=== PATIENT | male | born 1970 | race Caucasian/White ===

== ENCOUNTER 2020-02-25 12:15 | Outpatient (REF) | payer OTHER, BC, SELFPAY ==
--- NOTE | 2020-02-25 12:28 | XR_ITS ---
EXAMINATION: XR HAND, LEFT CLINICAL INFORMATION: Injury COMPARISON: None TECHNIQUE: PA, lateral, and oblique views of the left hand. FINDINGS: Nondisplaced fracture of the tuft of the 2nd distal phalanx with overlying soft tissue defect/abnormality at the volar aspect. No radiopaque foreign body. Evaluation of the 4th finger is limited as it is held in flexion at the PIP joint. IMPRESSION: Nondisplaced fracture of the tuft of the 2nd distal phalanx.
== END 2020-02-25 12:16 | disposition home or self-care (01) ==
LOC: HO.HMGCX 12:15
PROVIDERS: Visit Provider Nurse Practitioner Family
DX: S69.90XA Unspecified injury of unspecified wrist, hand and finger(s), initial encounter (principal); X58.XXXA Exposure to other specified factors, initial encounter; Y93.9 Activity, unspecified; Y92.9 Unspecified place or not applicable; Y99.9 Unspecified external cause status
CPT/HCPCS: 73130

== ENCOUNTER 2020-02-25 13:19 | Emergency (ER) | payer OTHER, BC, SELFPAY ==
[2020-02-25 13:57] VITALS: BP 169/108; PULSE 92; RESP 18; TEMP 36.4; O2SAT 99; BMI 25.1
--- NOTE | 2020-02-25 14:25 | ED_ITS ---
HPI - Extremity Problem General Chief complaint: Extremity Injury, Upper Stated complaint: finger inj work related Time Seen by Provider: 02/25/20 14:15 Source: patient Mode of arrival: ambulatory Limitations: no limitations History of Present Illness HPI Narrative: patient tells me he was working and he suffered a laceration to his left index finger. Told he was seen at urgent care and sent to the ED for further evaluation. Tetanus up-to-date. Complaint: extremity pain Onset (ago): hour(s) Pain Consistency: constant Location: left Quality: constant Radiation: none Relieving factors: nothing Associated symptoms: denies other symptoms Related Data Previous Rx's Medication Instructions Recorded cephalexin 500 mg PO Q8H #21 cap 02/25/20 Allergies Allergy/AdvReac Type Severity Reaction Status Date / Time No Known Allergies Allergy Verified 02/25/20 13:25 [No Known Allergies*] Review of Systems Review of Systems: Yes all other systems are reviewed and are negative Constitutional: Constitutional: Reports no additional constitutional complaints, Denies body ache(s), Denies chills, Denies fever(s), Denies headache(s) and Denies weakness Eyes: Eyes: Reports no additional eye complaints and Denies change in vision ENT: Reports system reviewed and no additional complaints, except as documented, Denies dizziness, Denies headache(s), Denies nasal congestion, Denie s nasal discharge and Denies neck pain Cardiovascular: Cardiovascular: Reports no additional cardiovascular complaints, Denies chest pain, Denies leg edema and Denies dyspnea Respiratory: Respiratory: Reports no additional respiratory complaints, Denies cough and Denies dyspnea Gastrointestinal: Gastrointestinal: Reports no additional gastrointestinal complaints, Denies abdominal pain, Denies diarrhea, Denies nausea and Denies vomiting Genitourinary: Genitourinary: Denies urinary incontinence Musculoskeletal: Musculoskeletal: Reports no additional musculoskeletal complaints, Denies back pain, Reports arthralgias, Denies joint swelling, Reports limited range of motion, Denies neck pain, Denies numbness and Denies tingling Comments: Skin lac Integumentary/Breasts: Skin/Breast: Reports system reviewed and no additional complaints, except as docu and Denies rash Neurologic: Reports system reviewed and no additional complaints, except as documented, Denies Abnormal speech present, Denies dizziness, Denies headache(s), Denies numbness, Denies tingling and Denies weakness PMFSH Past Medical History Attestation statement: The following information was validated with the patient. Source: obtained from family and nursing notes reviewed Medical History Chronic back pain Hypertension Scoliosis Surgical History S/P tendon repair Social History Social History Smoking Status: Current every day smoker Smoked in Last 30 Days: Yes Use of substances other than those prescribed or required for medical reasons: No Substance Use Type: Marijuana Advance Directives: No Advance Directives Information Provided: Yes Physical Exam Vital Signs and I&O and Narrative: Vital Signs and I&O: Vital Signs Temp 97.6 F 02/25/20 13:57 Pulse 92 02/25/20 13:57 Resp 18 02/25/20 13:57 BP 169/108 H 02/25/20 13:57 Pulse Ox 99 02/25/20 13:57 Intake & Output 02/24/20 02/25/20 02/25/20 18:59 06:59 18:59 Weight 79.379 kg Body Mass Index 25.1 Const: General: cooperative, healthy appearing, comfortable and no acute distress Orientation/consciousness: patient oriented x3 Limitations: no limitations HENMT: Head: Yes normal to inspection Ears: hearing grossly normal bilaterally General nose exam: Normal external nose present Face and sinus: Yes normal facial exam Mouth: Normal oral and palatal mucosa present Throat: Yes posterior oropharynx normal Eyes: General: appearance normal, both eyes and all related structures Pupils: Equal, round and reactive pupils present Neck: Neck: Yes normal visual inspection Chest: Chest palpation & inspection: normal inspection of the chest Resp: Effort & Inspection: normal respiratory effort Auscultation: clear to auscultation bilaterally Cardio: Rate: regular rate Rhythm: regular rhythm Peripheral pulses: Peripheral pulses 2+ throughout GI: Inspection: Yes normal to inspection Palpation (GI): Soft to palpation and nontender Auscultation: normal bowel sounds Back/Spine/Pelvis: Thoracic/Lumbar Spine: thoracic and lumbar spine normal to inspection Skin: General skin exam: no rashes or lesions noted Neuro: General: patient oriented x3, no focal motor deficits and normal sensation to monofilament Cranial nerves: Yes Equal, round and reactive pupils present Cognition (Neuro): normal cognition Speech: No Abnormal speech present Gait exam (Neuro): Normal gait present Motor exam (neuro): 5/5 motor strength present throughout Extrem: Other: to the left index finger there is a laceration to the volar aspect of the middle to distal digit. It is in the shape of a crescent the patient has pain with flexion and extension of the finger but is able. Neurovascularly intact distally. Normal cap refill. Nailbed not involved. Laceration approximately 4 cm General: Yes normal to inspection Left upper extremity: normal capillary refill; no edema and joint enlargement noted Procedures Laceration Laceration 1: Site: hand ( left index) Side (If applicable): left Size (cm): 4 Description: other (curved) Depth: simple, single layer Local Anesthetic: lidocaine 2% Amount of anesthesia used (mL): 2 Pre-repair: wound explored and irrigated extensively Skin layer closed with: nylon Size (cm): 5-0 Number of sutures: 9 Technique: simple, interrupted MDM - Extremity (Nontraumatic) MDM Narrative Medical decision making narrative: sent from urgent care with laceration. X- rays reviewed from earlier today which show a nondisplaced fracture of the tuft of the 2nd distal phalanx. Patient does have a laceration of the volar aspect and this was repaired. See procedure note. The patient was able to flex and extend the finger with no difficulty. He was placed in a finger splint for his fracture and place on oral antibiotics with follow-up with Orthopedics. Reviewed worrisome signs and symptoms when to return to the emergency department. Comfortable discharge home. Imaging Data hand x-ray: Attestation: I personally reviewed and interpreted this imaging study as follows: Radiologist's impression: EXAMINATION: XR HAND, LEFT CLINICAL INFORMATION: Injury COMPARISON: None TECHNIQUE: PA, lateral, and oblique views of the left hand. FINDINGS: Nondisplaced fracture of the tuft of the 2nd distal phalanx with overlying soft tissue defect/abnormality at the volar aspect. No radiopaque foreign body. Evaluation of the 4th finger is limited as it is held in flexion at the PIP joint. IMPRESSION: Nondisplaced fracture of the tuft of the 2nd distal phalanx. Discharge Plan Discharge Clinical Impression: Laceration Fracture of finger Qualifiers: Encounter type: initial encounter Finger: index finger Fracture type: open Phalanx: distal Fracture alignment: nondisplaced Laterality: left Qualified Code(s): S62.661B - Nondisplaced fracture of distal phalanx of left index finger, initial encounter for open fracture Patient Disposition: Home, Self-Care Instructions: Laceration (ED), Finger Fracture (ED) Additional Instructions: Sutures out in 7-10 days Follow-up with orthopedics Wash with soap and water daily as discussed Prescriptions: New cephalexin 500 mg capsule 500 mg PO Q8H Qty: 21 RF: 0 Referrals: Michael Wilcox MD [Physician] - 5 days Stand Alone Forms: Work/School Release Interventions: ED Discharge Assessment Last Done: 02/25/20 15:14 Discharge Date/Time: 02/25/20 15:16
== END 2020-02-25 15:16 | disposition home or self-care (01) ==
PROVIDERS: Emergency Provider Emergency Medicine
DX: S62.661B Nondisplaced fracture of distal phalanx of left index finger, initial encounter for open fracture (principal); W45.8XXA Other foreign body or object entering through skin, initial encounter; I10 Essential (primary) hypertension; F17.200 Nicotine dependence, unspecified, uncomplicated; Y93.9 Activity, unspecified; Y92.9 Unspecified place or not applicable; Y99.0 Civilian activity done for income or pay
CPT/HCPCS: 12002; 99284

== ENCOUNTER 2020-03-05 09:15 | Emergency (ER) | payer OTHER, SELFPAY ==
--- NOTE | 2020-03-05 09:40 | ED_ITS ---
HPI - General Adult General Chief complaint: General Medical Stated complaint: SUTURE REMOVAL Time Seen by Provider: 03/05/20 09:39 Source: patient Mode of arrival: ambulatory Limitations: no limitations History of Present Illness HPI narrative: Patient presenting to the ED for suture removal. Denies any fevers, redness, drainage, streaking or worsening pain. Was treated in the ED on 02/25/2020 given Keflex reports he is taking as prescribed. Related Data Previous Rx's Medication Instructions Recorded cephalexin 500 mg PO Q8H #21 cap 02/25/20 Allergies Allergy/AdvReac Type Severity Reaction Status Date / Time No Known Allergies Allergy Verified 02/25/20 13:25 [No Known Allergies*] Review of Systems Review of Systems: Yes all other systems are reviewed and are negative PMFSH Past Medical History Attestation statement: The following information was validated with the patient. Medical History Chronic back pain Hypertension Scoliosis Surgical History S/P tendon repair Social History Social History Alcohol intake: current Alcohol intake frequency: a few times a week Alcohol type: beer Smoking Status: Current every day smoker Use of substances other than those prescribed or required for medical reasons: No Substance Use Type: Marijuana Advance Directives: No Advance Directives Information Provided: No Physical Exam Vital Signs: Vital Signs: Vital Signs Temp Pulse Resp BP Pulse Ox 03/05/20 09:43 98.2 F 66 16 130/76 98 Body Mass Index 25.1 Const: General: cooperative, healthy appearing, comfortable, no acute distress, well developed, alert, awake and Physically active Nutritional Appearance: average body habitus and well nourished Orientation/consciousness: patient oriented x3 Limitations: no limitations HENMT: Head: Yes normal to inspection, Yes No palpable skull fracture present, Yes normocephalic and Yes atraumatic Ears: hearing grossly normal bilaterally General nose exam: Normal external nose present Face and sinus: Yes normal facial exam Mouth: moist mucous membranes Eyes: General: appearance normal, both eyes and all related structures Visual Munoz: normal visual munoz by confrontation Alignment and Position: alignment normal Periorbital: periorbital findings normal Eyelids: Yes eyelids normal Conjunctivae: conjunctivae normal Sclerae: sclerae normal Pupils: Equal, round and reactive pupils present EOM: EOMs intact bilaterally Neck: Neck: Yes normal visual inspection, Yes full ROM, Yes no lymphadenopathy, Yes no meningeal signs, Yes trachea midline and Yes supple Chest: Chest palpation & inspection: normal inspection of the chest Resp: Effort & Inspection: normal respiratory effort and able to speak in complete sentences Auscultation: clear to auscultation bilaterally, no crackles, no rales, no rhonchi and no wheezes Cardio: Rate: regular rate Rhythm: regular rhythm Heart sounds: S1 normal heart sound present and S2 normal heart sound present Peripheral pulses: Peripheral pulses 2+ throughout GI: Inspection: Yes normal to inspection Palpation (GI): Soft to palpation, nontender and No hepatosplenomegaly present Percussion: Yes normal to percussion Auscultation: normal bowel sounds : General: Yes no CVA tenderness Back/Spine/Pelvis: Back: no CVA tenderness Cervical Spine: normal cervical lordosis and cervical ROM normal Thoracic/Lumbar Spine: thoracic and lumbar spine normal to inspection and thoraco-lumbar ROM normal Skin: General skin exam: no rashes or lesions noted, elasticity normal and turgor normal Trauma: no lacerations or abrasions Wounds: no wounds Hair: normal Nails: normal Neuro: General: patient oriented x3 and no meningeal signs Cranial nerves: Yes CN's II-XII intact bilaterally and Yes Equal, round and reactive pupils present Cognition (Neuro): normal cognition Gait exam (Neuro): Normal gait present Motor exam (neuro): 5/5 motor strength present throughout Extrem: General: Yes normal to inspection, Yes full ROM, Yes capillary refill normal, Yes no clubbing, cyanosis or edema, No no pedal edema, No no calf tenderness, Yes normal gait and No edema Right upper extremity: normal to inspection, full ROM and normal capillary refill; no edema Left upper extremity: normal to inspection, full ROM, normal capillary refill and hand (to left hand [address] c well healing scab no signs of infection ); no edema Right lower extremity: normal to inspection, full ROM and normal capillary refill; no edema Left lower extremity: normal to inspection, full ROM and normal capillary refill; no edema Psych: Appearance: grossly normal and well kempt Mental Status: mental status grossly normal Speech and movement: Normal speech and movement present and Clear speech present Affect: normal affect Attitude: cooperative Thought process: Normal thought process present Thought content: Normal thought content present Insight: Good insight present (Psych) Judgement: Good judgement present (Psych) Procedures Procedure Narrative Procedure Narrative: Suture removal to left index finger 9 sutures removed. No complications. No surrounding erythema. Well-healing scab noted. Patient tolerated procedure well. It was also cleaned with normal saline. Discharge Plan Discharge Clinical Impression: Encounter for removal of sutures Patient Disposition: Home, Self-Care Instructions: Stitches Removal (ED) Prescriptions: No Action cephalexin 500 mg capsule 500 mg PO Q8H Qty: 21 RF: 0 Print Language: Tamazight
[2020-03-05 09:43] VITALS: BP 130/76; PULSE 66; RESP 16; TEMP 36.8; O2SAT 98; BMI 25.1
== END 2020-03-05 09:56 | disposition home or self-care (01) ==
PROVIDERS: Emergency Provider Emergency Medicine
DX: Z48.02 Encounter for removal of sutures (principal); Z79.899 Other long term (current) drug therapy
CPT/HCPCS: 99283

== ENCOUNTER → 2020-03-09 12:57 | Outpatient (BNVA) | payer OTHER, BC, SELFPAY | PROVIDERS: Visit Provider Physician Assistant | DX: S62.631D Displaced fracture of distal phalanx of left index finger, subsequent encounter for fracture with routine healing (principal) | CPT/HCPCS: 99203 ==

== ENCOUNTER 2021-12-29 08:42 | Emergency (ER) | payer BC, SELFPAY ==
--- NOTE | ~2021-12-29 | MR_ITS ---
MR BRAIN WITHOUT AND WITH CONTRAST CLINICAL INFORMATION: Abnormal CT. Question hemorrhage. COMPARISON: Head CT 12/29/2021. TECHNIQUE: Multiplanar, multisequence MRI of the brain was obtained before and after the intravenous administration of 8 mL Gadavist. FINDINGS: There is no pathologic intracranial enhancement. There is global cerebral volume loss, there is mild chronic microangiopathy, and there are chronic lacunar infarcts within the left cerebellar hemisphere. There is no hydrocephalus, extra-axial surface collection, or herniation. The major flow voids at the skull base are preserved. There is no acute infarct on diffusion-weighted imaging. The punctate focus of increased density within the high left parasagittal frontal lobe on the previous CT study most likely reflected a punctate calcification. No evidence of acute blood products in this location nor elsewhere intracranially. The midline structures are normal. The cerebellar tonsils are normally positioned. The cerebellum and brainstem are normal. The craniocervical junction is normal. Osseous marrow signal intensity is homogenous. The visualized soft tissues are unremarkable. Near-complete opacification of the right maxillary sinus. All mucosal thickening within the posterior right ethmoid air cells. Mastoid air cells are clear. MR/MR head/brain wo/w con IMPRESSION: - No acute intracranial findings. No acute infarcts and no enhancing lesions. - The punctate focus of increased density within the high left parasagittal frontal lobe on the previous CT study most likely reflected a punctate calcification. No evidence of acute blood products in this location nor elsewhere intracranially. - There is global cerebral volume loss, there is mild chronic microangiopathy, and there are chronic lacunar infarcts within the left cerebellar hemisphere. - Near complete opacification of the right maxillary sinus.
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
--- NOTE | ~2021-12-29 | XR_ITS ---
EXAMINATION: XR CHEST CLINICAL INFORMATION: Headache, forgetfulness COMPARISON: Chest radiograph 03/24/2015 TECHNIQUE: 2 views of the chest were obtained. FINDINGS: Lungs are clear. There is no airspace consolidation or groundglass opacity or effusion. The costophrenic sulci are well-defined. Heart size normal. Vascularity normal. The hilar and mediastinal contours are unremarkable. There is curvature and mild degenerative disc changes thoracic spine. No visible acute bony abnormality. XR/XR chest 2V IMPRESSION: Unremarkable examination.
[2021-12-29 08:48] VITALS: BP 145/98; PULSE 118; RESP 20; TEMP 36.8; O2SAT 98; BMI 25.8
--- NOTE | 2021-12-29 09:55 | ED.HA ---
HPI - Headache General Chief Complaint: Headache Stated Complaint: feels like head is going to explode Time Seen by Provider: 12/29/21 09:03 Source: patient Mode of arrival: ambulatory Limitations: no limitations History of Present Illness HPI Narrative: 51-year-old male with a past medical history of hypertension not on any medications, substance abuse, scoliosis with chronic back pain presenting to the ED with complaints of headaches and forgetfulness unable to concentrate or take care of himself or his home for the past 2 years. 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 He reports that he went to the urgent care and then they sent him here and he had an x-ray of his hand in a laceration which they repaired although he cannot recall anything else from this accident. He also reports that he cannot recall anything in the last 2 years he is unsure what has been happening in the last 2 years. He reports that his house is the disaster and he has been unable to take care of himself. Although he knows who is the president he knows his birthday was yesterday and he knows he is at [facility]. He reports that he does have a appointment with Dr. Sequeira in a few weeks. He reports otherwise he has not seen a provider in the past 2 years or longer. 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 He also reports that his memory is slowly coming back to him mainly through the pictures that he is looking at his phone and this is how he can recall the accident at this time although he could not recall the accident over the past 2 years. He reports that he has been having multiple falls although can not recall a recent fall. He denies a family history of dementia or history of dementia himself. Otherwise he denies any dizziness, change in vision, chest pain or shortness of breath, dyspnea on exertion, orthopnea, palpitations, paresthesias, nausea/vomiting/diarrhea constipation, black or bloody stools, rashes, paresthesias, lower extremity edema or calf tenderness, recent drug or alcohol usage, recent travel or sick contacts, any other head injuries, SI/HI/auditory visual sensation is thoughts of self-injury or any other complaints or concerns at this time. 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 ) Onset (ago): year(s) (2) Onset description: gradually Location: generalized Severity: mild Quality & Timing: other (Patient reports it feels like a drill is drilling through my head .) Exacerbating factors: none Relieving factors: nothing Context: other (Started he believes after he had a work related head injury 2 years ago with a pipe exploded in his face) Associated symptoms: other (Forgetfulness unable to concentrate or take care of himself) Treatments prior to arrival: none Related Data Previous Rx's Medication Instructions Recorded yatgevijfu-femkzsfuslbyz-mygshhxt 1 cap PO Q8H PRN pain #14 caps 12/29/21 50 mg-300 mg-40 mg capsule (Fioricet) Allergies Allergy/AdvReac Type Severity Reaction Status Date / Time No Known Allergies Allergy Verified 11/30/21 09:38 [No Known Allergies*] Review of Systems Review of Systems: Constitutional : No changes in activity, No lethargy, No recent prior head injury, No agitation, No increased fussiness ENT/Mouth : No Ear Pain, No Nasal discharge/drainage Eyes: No Eye Pain, No Swelling, No Redness, No Foreign Body, No Vision Changes Cardiovascular : No Chest Pain, No SOB Respiratory : No Cough Gastrointestinal : No Nausea, No Vomiting, No abdominal Pain Genitourinary : No Dysuria, No Urinary Frequency, No Urinary Incontinence, No Urgency, No Flank Pain Musculoskeletal : No joint pain, No neck stiffness, No back pain/injury Skin : No lacerations Neuro : + headaches and forgetfullness unable to concentrate or remember anything over the past 1-2 years, No unsteady gait, No Paresthesias, No Loss of Consciousness, No altered mental status, No dizziness Denies past medical history of HIV, recent trauma, coagulopathy, recent spinal/ epidural procedure, new medication, URI symptoms, close contacts with similar symptoms, tick bite, or known CO2 exposure. Yes all other systems are reviewed and are negative PMFSH Past Medical History Attestation statement: The following information was validated with the patient. Source: old records reviewed and nursing notes reviewed Medical History Chronic back pain Hypertension Scoliosis Surgical History S/P tendon repair Social History Social History Alcohol intake: current Alcohol intake frequency: former alcohol drinker Alcohol type: beer Patient Tobacco Use Status: Current everyday Tobacco user Use of substances other than those prescribed or required for medical reasons: Yes Substance Use Type: Marijuana Substance Use Frequency: Occasionally Advance Directives: No Advance Directives Information Provided: Yes Physical Exam Vital Signs: Vital Signs: Last Vital Signs Temp 98.2 F 12/29/21 08:48 Pulse 76 12/29/21 15:36 Resp 16 12/29/21 15:36 BP 129/90 H 12/29/21 15:36 Pulse Ox 98 12/29/21 15:36 O2 Del Method 12/29/21 15:36 BMI result Body Mass Index 25.8 Vital signs have been reviewed as normal and appeared to be correct. Blood pressure 145/98 Heart rate 118. Respiration rate normal. Temperature normal. Oxygen saturation normal. Appearance: Alert. Oriented X3. No acute distress. Head: Normal external exam. Normocephalic. Atraumatic. Able to rotate head bilaterally. Eyes: PERRLA. EOMI. No nystagmus noted. Conjunctiva and sclera normal. Eyelids normal. Corneal reflex normal. ENT: EAC normal. TM's Normal. Hearing normal. Pharynx normal. Uvula midline. tongue midline. Moist mucous membranes. No trismus noted. No drooling noted. No muffled voice noted. Neck: Normal inspection. Neck supple. FROM. No adenopathy. Thyroid Normal. No meningeal signs. No neck mass noted. CVS: Normal heart rate and rhythm. Heart sound normal. No murmurs noted. Pulses normal throughout. Respiratory: No respiratory distress. Painless inspiration. Breath sounds normal. No wheezes/rales/rhonchi noted. Chest nontender. No accessory muscle usage noted or decreased air movement noted. Back: Full range of motion noted. Skin: Skin warm and dry. Normal skin color. Normal skin turgor. No rashes/lesions/lacerations noted. Extremities: Extremities exhibit normal range of motion. Extremities nontender. Able to shrug shoulders bilaterally and keep up against resistance. Neuro: Oriented X 3. No motor deficit. No sensory deficit. Reflexes normal. Moving all extremities. No focal motor deficits. Cranial nerves II-XI intact bilaterally. Facial strength normal. Normal cognition. Speech normal. Gait normal. Strength 5/5 throughout. No pronator drift. No tremor noted. No fasciculations noted. Muscle tone normal throughout. No asterixis noted. Lhxwru-lt-ohxc test normal. Heel to palomares test normal. Tandem gait normal. Does not sway with eyes open. Romberg test negative. Rapid alternating movement upper extremity normal. Rapid alternating movement lower extremity normal. Hand drop from overhead-Mrs. face. No rigidity noted. NIHSS score 0. 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 He reports he cannot recall the last 2 years of his life and is very concerned. Reports the headache feels like ?a drill drilling through my head?. He denies any other symptoms complaints or concerns at this time. Not on any blood thinners. Denies any recent falls that he can recall other than 2 years ago. Plan: Labs, CT scan of brain/cervical spine, EKG, chest x-ray, drug urine screen, ethanol level, COVID swab, UA and re-evaluate. Reevaluation(s) Reevaluation #1: - labs returned and patient's calcium 10.4. Alkaline phosphate 125. Total protein 8.6. Albumin 5.3. Otherwise all other labs are within normal limits. Patient negative for any EtOH and negative for COVID. - CT scan of brain without contrast revealed a very small punctuate area of increased attenuation in the left parietal region may be a small chronic calcification but they are unable to completely exclude a small area of petechial hemorrhage. They also reported that there is low attenuation left cerebral hemisphere of uncertain etiology and they are reporting that this could be an old infarct possible vascular malformation. Therefore at this time will obtain an MRI of brain without contrast for further evaluation treatment. - patient understands agrees with this plan. Time: 12:10 Reevaluation #2: - MRI of brain with and without contrast revealed chronic lacunar infarcts within the left cerebral hemisphere and other chronic changes otherwise no other acute processes noted. - therefore at this time will involve physical therapy and case management will re-evaluate patient understands agrees with this plan. Time: 14:23 Reevaluation #3: - patient passed physical therapy. Case management spoke to the patient he is declining VNA services or [facility] services at home. Therefore will DC home with a short course of Fioricet for his headaches and instructions to follow-up with his PCP. Patient understands agrees with this plan. Time: 16:17 [facility] - Headache Medical Records Attestation: I reviewed the patient's medical records. Lab Data Attestation: I reviewed the patient's lab results. Result diagrams: 12/29/21 11:15 12/29/21 11:15 Labs: Lab Results 12/29/21 12/29/21 12/29/21 Range/Units 11:15 11:15 11:15 WBC 9.4 (4.8-10.8) X10*3/uL RBC 5.53 (4.60-5.80) X10*6/uL Hgb 17.4 (14.0-18.0) g/dl Hct 49.3 (42.0-52.0) % MCV 89.2 (80.0-98.0) fL MCH 31.5 (27.0-33.0) pg MCHC 35.3 (31.0-36.0) g/dl RDW 11.9 (11.0-16.0) % Plt Count 211 (160-400) X10*3/uL MPV 10.7 (9.4-12.4) fL Immature Gran % (Auto) 0.3 (0.0-0.4) % Neut % (Auto) 74.8 H (45-73) % Lymph % (Auto) 19.7 L (20-40) % [place] % (Auto) 4.7 (2-11) % Eos % (Auto) 0.2 (0-4) % Baso % (Auto) 0.3 (0-2) % Lymph # (Auto) 1.8 (1.2-4.9) X10*3/uL [place] # (Auto) 0.4 (0.1-1.2) X10*3/uL Eos # (Auto) 0.0 (0.0-0.4) X10*3/uL Baso # (Auto) 0.0 (0.0-0.2) X10*3/uL Abs Immat Gran (auto) 0.03 (0.00-0.03) X10*3/uL Absolute Neuts (auto) 7.0 (2.0-8.3) x10*3/uL Absolute Nucleated RBC 0.000 (0.0-0.012) X10*3/uL Nucleated RBC % (auto) 0.0 (0.0-0.2) /100WBC PT 12.1 (10.0-13.1) SEC INR 1.1 (0.9-1.1) Sodium 142 (135-145) mmol/L Potassium 4.8 (3.3-5.1) mmol/L Chloride 103 (96-108) mmol/L Carbon Dioxide 26 (22-29) mmol/L Anion Gap 18 (12-20) BUN 10 (9-16) mg/dL Creatinine 1.05 (0.5-1.4) mg/dL Estim Creat Clear Calc 84.1 Estimated GFR > 60 Random Glucose 101 (60-115) mg/dL Calcium 10.4 H (8.4-10.2) mg/dL Magnesium 2.4 (1.6-2.6) mg/dL Total Bilirubin 0.6 (0.0-1.0) mg/dL AST 20 (5-37) U/L ALT 21 (0-40) U/L Alkaline Phosphatase 125 H (39-117) U/L Total Creatine Kinase (38-174) U/L Troponin I High Sens (<3.5-35.0) ng/L Total Protein 8.6 H (6.5-8.0) g/dL Albumin 5.3 H (3.5-5.0) g/dL Urine Color Urine Appearance Urine pH (5.0-8.0) Ur Specific [place] (1.005-1.025) Urine Protein (NEG-TRACE) MG/DL Urine Glucose (UA) (NEG) MG/DL Urine Ketones (NEG) MG/DL Urine Blood (NEG) Urine Nitrite (NEG) Ur Leukocyte Esterase (NEG) Urine Opiates Screen (Not Detect) Urine Fentanyl Screen (Not Detect) Ur Barbiturates Screen (Not Detect) Ur Phencyclidine Scrn (Not Detect) Ur Amphetamines Screen (Not Detect) U Benzodiazepines Scrn (Not Detect) Urine Cocaine Screen (Not Detect) U Marijuana (THC) Screen (Not Detect) Ethyl Alcohol mg/dL COVID-19 (MAURICE) (Negative) COVID-19 Clin Com 12/29/21 12/29/21 12/29/21 Range/Units 11:15 11:15 11:15 WBC (4.8-10.8) X10*3/uL RBC (4.60-5.80) X10*6/uL Hgb (14.0-18.0) g/dl Hct (42.0-52.0) % MCV (80.0-98.0) fL MCH (27.0-33.0) pg MCHC (31.0-36.0) g/dl RDW (11.0-16.0) % Plt Count (160-400) X10*3/uL MPV (9.4-12.4) fL Immature Gran % (Auto) (0.0-0.4) % Neut % (Auto) (45-73) % Lymph % (Auto) (20-40) % [place] % (Auto) (2-11) % Eos % (Auto) (0-4) % Baso % (Auto) (0-2) % Lymph # (Auto) (1.2-4.9) X10*3/uL [place] # (Auto) (0.1-1.2) X10*3/uL Eos # (Auto) (0.0-0.4) X10*3/uL Baso # (Auto) (0.0-0.2) X10*3/uL Abs Immat Gran (auto) (0.00-0.03) X10*3/uL Absolute Neuts (auto) (2.0-8.3) x10*3/uL Absolute Nucleated RBC (0.0-0.012) X10*3/uL Nucleated RBC % (auto) (0.0-0.2) /100WBC PT (10.0-13.1) SEC INR (0.9-1.1) Sodium (135-145) mmol/L Potassium (3.3-5.1) mmol/L Chloride (96-108) mmol/L Carbon Dioxide (22-29) mmol/L Anion Gap (12-20) BUN (9-16) mg/dL Creatinine (0.5-1.4) mg/dL Estim Creat Clear Calc Estimated GFR Random Glucose (60-115) mg/dL Calcium (8.4-10.2) mg/dL Magnesium (1.6-2.6) mg/dL Total Bilirubin (0.0-1.0) mg/dL AST (5-37) U/L ALT (0-40) U/L Alkaline Phosphatase (39-117) U/L Total Creatine Kinase 88 (38-174) U/L Troponin I High Sens < 3.5 (<3.5-35.0) ng/L Total Protein (6.5-8.0) g/dL Albumin (3.5-5.0) g/dL Urine Color Urine Appearance Urine pH (5.0-8.0) Ur Specific [place] (1.005-1.025) Urine Protein (NEG-TRACE) MG/DL Urine Glucose (UA) (NEG) MG/DL Urine Ketones (NEG) MG/DL Urine Blood (NEG) Urine Nitrite (NEG) Ur Leukocyte Esterase (NEG) Urine Opiates Screen (Not Detect) Urine Fentanyl Screen (Not Detect) Ur Barbiturates Screen (Not Detect) Ur Phencyclidine Scrn (Not Detect) Ur Amphetamines Screen (Not Detect) U Benzodiazepines Scrn (Not Detect) Urine Cocaine Screen (Not Detect) U Marijuana (THC) Screen (Not Detect) Ethyl Alcohol < 10 mg/dL COVID-19 (MAURICE) Negative (Negative) COVID-19 Clin Com See Note 12/29/21 12/29/21 Range/Units 11:58 11:58 WBC (4.8-10.8) X10*3/uL RBC (4.60-5.80) X10*6/uL Hgb (14.0-18.0) g/dl Hct (42.0-52.0) % MCV (80.0-98.0) fL MCH (27.0-33.0) pg MCHC (31.0-36.0) g/dl RDW (11.0-16.0) % Plt Count (160-400) X10*3/uL MPV (9.4-12.4) fL Immature Gran % (Auto) (0.0-0.4) % Neut % (Auto) (45-73) % Lymph % (Auto) (20-40) % [place] % (Auto) (2-11) % Eos % (Auto) (0-4) % Baso % (Auto) (0-2) % Lymph # (Auto) (1.2-4.9) X10*3/uL [place] # (Auto) (0.1-1.2) X10*3/uL Eos # (Auto) (0.0-0.4) X10*3/uL Baso # (Auto) (0.0-0.2) X10*3/uL Abs Immat Gran (auto) (0.00-0.03) X10*3/uL Absolute Neuts (auto) (2.0-8.3) x10*3/uL Absolute Nucleated RBC (0.0-0.012) X10*3/uL Nucleated RBC % (auto) (0.0-0.2) /100WBC PT (10.0-13.1) SEC INR (0.9-1.1) Sodium (135-145) mmol/L Potassium (3.3-5.1) mmol/L Chloride (96-108) mmol/L Carbon Dioxide (22-29) mmol/L Anion Gap (12-20) BUN (9-16) mg/dL Creatinine (0.5-1.4) mg/dL Estim Creat Clear Calc Estimated GFR Random Glucose (60-115) mg/dL Calcium (8.4-10.2) mg/dL Magnesium (1.6-2.6) mg/dL Total Bilirubin (0.0-1.0) mg/dL AST (5-37) U/L ALT (0-40) U/L Alkaline Phosphatase (39-117) U/L Total Creatine Kinase (38-174) U/L Troponin I High Sens (<3.5-35.0) ng/L Total Protein (6.5-8.0) g/dL Albumin (3.5-5.0) g/dL Urine Color YELLOW Urine Appearance CLEAR Urine pH 6.0 (5.0-8.0) Ur Specific [place] 1.010 (1.005-1.025) Urine Protein NEG (NEG-TRACE) MG/DL Urine Glucose (UA) NEG (NEG) MG/DL Urine Ketones NEG (NEG) MG/DL Urine Blood NEG (NEG) Urine Nitrite NEG (NEG) Ur Leukocyte Esterase NEG (NEG) Urine Opiates Screen Not Detected (Not Detect) Urine Fentanyl Screen Not Detected (Not Detect) Ur Barbiturates Screen Not Detected (Not Detect) Ur Phencyclidine Scrn Not Detected (Not Detect) Ur Amphetamines Screen Not Detected (Not Detect) U Benzodiazepines Scrn Not Detected (Not Detect) Urine Cocaine Screen Not Detected (Not Detect) U Marijuana (THC) Screen POSITIVE H (Not Detect) Ethyl Alcohol mg/dL COVID-19 ([facility]URICE) (Negative) COVID-19 Clin Com Imaging Data CT scan of brain/cervical spine without contrast: Attestation: I personally reviewed and interpreted this imaging study as follows: Radiologist's impression: CT brain; On image [id number] in the high parietal region on the left there is a focal area of increased attenuation. This could represent chronic calcification but a small petechial area of hemorrhage cannot be completely excluded here. There is no midline shift. There is no mass effect. No extra-axial collection. The basilar cisterns are patent. The posterior fossa risk grossly within normal limits. Possible area of infarct in the left cerebellar region. There is low attenuation here but no convincing evidence for mass effect. The white matter show some possible small areas of otherwise white matter ischemic change. Large mucous retention cyst or polyp formation the right maxillary sinus. No fracture on the bone windows. CT cervical spine; No evidence for an acute fracture or dislocation. Degenerative changes are noted here. CT/CT head/brain wo con IMPRESSION: In the brain as described a very small punctate area of increased attenuation in the high left parietal region may be a small chronic calcification but I cannot completely exclude a small area of petechial hemorrhage. Consider repeating this scan in 2 to 3 hours to assess for any evolution versus MR this time to further evaluate. ? There is an area of low attenuation left cerebellar hemisphere of uncertain etiology. This could represent an old infarct. Possible vascular malformation. This is not associated with any mass effect. Again MR would be helpful ? Otherwise possible scattered white matter ischemic changes noted. No midline shift or mass effect is noted here. ? No acute finding in the cervical spine MRI with and without contrast: Attestation: I personally reviewed and interpreted this imaging study as follows: Radiologist's impression: FINDINGS: There is no pathologic intracranial enhancement. There is global cerebral volume loss, there is mild chronic microangiopathy, and there are chronic lacunar infarcts within the left cerebellar hemisphere. There is no hydrocephalus, extra-axial surface collection, or herniation. The major flow voids at the skull base are preserved. There is no acute infarct on diffusion-weighted imaging. The punctate focus of increased density within the high left parasagittal frontal lobe on the previous CT study most likely reflected a punctate calcification. No evidence of acute blood products in this location nor elsewhere intracranially. The midline structures are normal. The cerebellar tonsils are normally positioned. The cerebellum and brainstem are normal. The craniocervical junction is normal. Osseous marrow signal intensity is homogenous. The visualized soft tissues are unremarkable. Near-complete opacification of the right maxillary sinus. All mucosal thickening within the posterior right ethmoid air cells. Mastoid air cells are clear. MR/MR head/brain wo/w con IMPRESSION: - No acute intracranial findings. No acute infarcts and no enhancing lesions. ? - The punctate focus of increased density within the high left parasagittal frontal lobe on the previous CT study most likely reflected a punctate calcification. No evidence of acute blood products in this location nor elsewhere intracranially. ? - There is global cerebral volume loss, there is mild chronic microangiopathy, and there are chronic lacunar infarcts within the left cerebellar hemisphere. ? - Near complete opacification of the right maxillary sinus. ECG Data Attestation: I personally reviewed and interpreted this ECG as follows: ECG interpretation date: 12/29/21 ECG interpretation time: 12:06 Interpretation: Normal sinus rhythm with ventricular rate of 85 with a normal WV interval normal QRS duration normal QT/QTC interval. No acute ischemic change are noted. Similar compared to prior EKG 09/04/2017. Critical Care Time Critical Care Time Critical Care Time: Yes Total Critical Care Time: 60 Attestation: I personally attest to this time spent taking care of the patient Discharge Plan Discharge Clinical Impression: Chronic headaches, Late effect of lacunar infarction, Microangiopathy Patient Disposition: Home, Self-Care Instructions: General Headache (ED) Prescriptions: New ddifaxfqxs-kwoedlbnkdnth-xhdt [Fioricet] 50-300-40 mg capsule 1 cap PO Q8H PRN (Reason: pain) Qty: 14 0RF Referrals: Trevon Sequeira MD [Physician] - 2 days Print Language: Turkmen
[2021-12-29 11:29] LABS: MANUAL DIFF FLAG NO
[2021-12-29 11:34] LABS: Basophils Percent Auto 0.3 % (0-2); Eosinophils Percent Auto 0.2 % (0-4); Hematocrit 49.3 % (42.0-52.0); Hemoglobin 17.4 g/dl (14.0-18.0); Imm Gran Abs Auto 0.03 X10*3/uL (0.00-0.03); Imm Gran Pct Auto 0.3 % (0.0-0.4); Lymphocytes Absolute Auto 1.8 X10*3/uL (1.2-4.9); Lymphocytes Percent Auto 19.7 % (20-40); Mean Corpuscular HGB Conc 35.3 g/dl (31.0-36.0); Mean Corpuscular Hemoglobin 31.5 pg (27.0-33.0); Mean Corpuscular Volume 89.2 fL (80.0-98.0); Mean Platelet Volume 10.7 fL (9.4-12.4); Monocytes Absolute Auto 0.4 X10*3/uL (0.1-1.2); Monocytes Percent Auto 4.7 % (2-11); Neutrophils Percent Auto 74.8 % (45-73); Platelet Count 211 X10*3/uL (160-400); Red Blood Count 5.53 X10*6/uL (4.60-5.80); Red Cell Distribution Width 11.9 % (11.0-16.0); White Blood Count 9.4 X10*3/uL (4.8-10.8)
[2021-12-29 11:46] LABS: Ethanol < 10 mg/dL
[2021-12-29 11:47] LABS: Alanine Aminotransferase 21 U/L (0-40); Albumin Level 5.3 g/dL (3.5-5.0); Alkaline Phosphatase 125 U/L (39-117); Anion Gap 18 (12-20); Aspartate Amino Transferase 20 U/L (5-37); Bilirubin Total 0.6 mg/dL (0.0-1.0); Blood Urea Nitrogen 10 mg/dL (9-16); Calcium 10.4 mg/dL (8.4-10.2); Carbon Dioxide 26 mmol/L (22-29); Chloride 103 mmol/L (96-108); Creatinine Clr Calc Pharmacy 84.1; Estimated Glomerular Filt Rate > 60; Glucose Random 101 mg/dL (60-115); Magnesium 2.4 mg/dL (1.6-2.6); Potassium 4.8 mmol/L (3.3-5.1); Sodium 142 mmol/L (135-145); Total Protein 8.6 g/dL (6.5-8.0)
[2021-12-29 11:50] LABS: COVID-19 Test Negative (Negative); INTERNATIONAL NORM RATIO 1.1 (0.9-1.1); Prothrombin Time 12.1 SEC (10.0-13.1)
--- NOTE | 2021-12-29 12:11 | ECG_ITS ---
Test Reason : hbp Blood Pressure : / mmHG Vent. Rate : 085 BPM Atrial Rate : 085 BPM P-R Int : 148 ms QRS Dur : 088 ms QT Int : 366 ms P-R-T Axes : 014 057 042 degrees QTc Int : 435 ms Normal sinus rhythm Normal ECG When compared with ECG of 04-SEP-2017 22:40, No significant change was found Referred By: Radha Aguilera Electronically Signed By:KATHERINE JASON
[2021-12-29 12:18] LABS: Appearance Urine CLEAR; Color Urine YELLOW; Glucose Urine UA NEG (NEG); Leukocyte Esterase Urine NEG (NEG); Nitrite Urine NEG (NEG); Urine Blood NEG (NEG); Urine Ketones NEG (NEG); Urine Protein NEG (NEG-TRACE)
[2021-12-29 13:04] LABS: Troponin-I High Sensitivity < 3.5 ng/L (<3.5-35.0)
[2021-12-29 14:37] LABS: Amphetamine Screen Urine Not Detected (Not Detect); Barbiturates, Urine Not Detected (Not Detect); Benzodiazepines Screen Urine Not Detected (Not Detect); Cocaine Screen Urine Not Detected (Not Detect); Fentanyl, urine Not Detected (Not Detect); Opiate Screen Urine Not Detected (Not Detect); Phencyclidine Screen Urine Not Detected (Not Detect)
[2021-12-29 14:41] LABS: Cannabinoid Screen Urine POSITIVE (Not Detect)
[2021-12-29 14:46] VITALS: BP 145/98; PULSE 118; O2SAT 98
[2021-12-29 15:36] VITALS: BP 129/90; PULSE 76; RESP 16; O2SAT 98
--- NOTE | 2021-12-29 15:59 | MHC.CM.PN ---
PT REPORTS HE HAS BEEN HAVING DIFFICULTY WITH MEMORY/MOOD AND DAILY LIVING SINCE SHORTLY AFTER HIS WORK RELATED ACCIDENT TWO YEARS AGO. HE SAYS THE ACCIDENT WAS IN FEBRUARY OF 2020, HE SAYS HE TRIED TO WORK AFTER THAT BUT EVENTUALLY HAD TO STOP HE SAYS THERE IS CONSTANT RINGING IN HIS HEAD AND A CONSTANT HEADACHE HE REPORTS HE HAS ALSO HAD MOOD CHANGES INCLUDING OUTBURSTS PT REPORTS DESPITE HAVING DIFFICULT WITH CARING FOR HIMSELF AND MEMORY, HE IS NOT INTERESTED IN ANY TYPE OF CHANGE IN HIS LIVING SITUATION. HE REPORTS HE IS JUST TRYING TO FIGURE OUT WHAT IS HAPPENING SO THAT HE CAN GET SOME RELIEF HE SAYS HE ALSO HAS NOT BEEN ABLE TO SLEEP HE REPORTS HE HAS A NEW PT APPT WITH DR CORTÉS ON 01/10/22 AT 1400 HOURS HE IS AWARE IT IS IMPORTANT TO ATTEND SO THAT HE CAN HAVE A COMPLETE WORKUP OUTPATIENT AND HAVE SERVICES ARRANGED IF NEEDED PT WILL RETURN HOME ONCE TREATMENT IS COMPLETE HE WILL DRIVE HIMSELF
--- NOTE | 2021-12-29 16:13 | MHC.CM.ED ---
NANCY spoke with Radha LUX regarding previous CM assessment. Aware that pt is not looking for a change in his living situation, just some headache relief. Radha will speak with Dr. Alvarez regarding pain management and will probably d/c patient home.
== END 2021-12-29 16:56 | disposition home or self-care (01) ==
PROVIDERS: Physician Assistant Medical; Emergency Provider Emergency Medicine
DX: G89.29 Other chronic pain (principal); R51.9 Headache, unspecified; I63.81 Other cerebral infarction due to occlusion or stenosis of small artery; I73.9 Peripheral vascular disease, unspecified; I10 Essential (primary) hypertension; F19.10 Other psychoactive substance abuse, uncomplicated; F17.200 Nicotine dependence, unspecified, uncomplicated; F12.90 Cannabis use, unspecified, uncomplicated; Z20.822 Contact with and (suspected) exposure to COVID-19
CPT/HCPCS: 36415; 70450; 70553; 71046; 72125; 80053; 80307; 81003; 82077; 82550; 83735; 84484; 85025; 85610; 87635; 93005; 96374; 97162; 99284; 99285; A9585

== ENCOUNTER 2022-01-16 08:45 | Outpatient (REF) | payer BC, SELFPAY ==
[2022-01-16 12:06] LABS: Alanine Aminotransferase 17 U/L (0-40); Albumin Level 4.8 g/dL (3.5-5.0); Alkaline Phosphatase 135 U/L (39-117); Anion Gap 17 (12-20); Aspartate Amino Transferase 16 U/L (5-37); Bilirubin Total 0.7 mg/dL (0.0-1.0); Blood Urea Nitrogen 11 mg/dL (9-16); Calcium 10.1 mg/dL (8.4-10.2); Carbon Dioxide 23 mmol/L (22-29); Chloride 105 mmol/L (96-108); Cholesterol 226 mg/dL; Estimated Glomerular Filt Rate > 60; Glucose Fasting 92 mg/dL (60-99); HDL Cholesterol 37 mg/dL; LDL Cholesterol Calculated 127 mg/dl; Sodium 141 mmol/L (135-145); Total Protein 7.9 g/dL (6.5-8.0); Triglycerides 313 mg/dL
[2022-01-16 12:30] LABS: TSH reflex Free T4 1.36 uIU/mL (0.32-4.0)
== END 2022-01-16 08:46 | disposition home or self-care (01) ==
LOC: HO.WFDLDS 08:45
PROVIDERS: Visit Provider Family Medicine
DX: Z00.00 Encounter for general adult medical examination without abnormal findings (principal); Z12.5 Encounter for screening for malignant neoplasm of prostate
CPT/HCPCS: 36415; 80053; 80061; 84153; 84443

== ENCOUNTER 2022-02-09 13:09 | Outpatient (REF) | payer OTHER, SELFPAY ==
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
--- NOTE | 2022-02-10 08:57 | MHC.AU.MED ---
Medical Clearance for Hearing Instrumentation Date: 02/10/22 Patient Name: Juanito Lou Date of : 1970 Primary Care Provider: Dr. Trevon Sequeira We have seen your patient on 02/09/22 and have determined that they are a candidate for amplification (See accompanying report). Specifically, they would benefit from: Hearing aid use in both ears There is a statute that addresses Medical Evaluation Requirements prior to fitting a patient with a hearing aid. According to [place] statute [facility] CMR:6.03(1), (a) General. Except as provided in 265 CMR 6.03(1)(b), a disability hearing officer shall not sell a hearing aid unless the prospective user has presented to the disability hearing officer a written statement signed by a licensed physician that states that the patient's hearing loss has been medically evaluated and the patient may be considered a candidate for a hearing aid. The medical evaluation must have taken place within the preceding six months. Please note: Due to the [place] Statute referenced above, we cannot accept a signature other than that of a licensed physician. COTTON PROGRAM TECHNICIAN and PA signatures cannot be accepted. I am in agreement with the above recommendation. There is no medical contraindication for hearing instrumentation. Physician Signature Date Physician Name (Printed)
--- NOTE | 2022-02-10 08:58 | MHC.AU.HAS ---
Hearing Aid Evaluation Date of Visit: 02/09/22 Historical Information: Description of Hearing: Mild to moderate sensorineural hearing loss bilaterally Summary: Patient was seen for audiological evaluation. See separate report for details. Patient is interested in amplification. One of his primary concerns is his tinnitus, which interferes with his ability to sleep. Discussed rechargeable vs disposable batteries- he would like to have disposable batteries so that he can wear the hearing aids to bed if he finds they help his tinnitus. Hearing Aid Prescription: Based on the individual?s shared listening needs, communication environments, dexterity, desire for connectivity, and personal preferences, the following prescription for amplification has been made: Right ear: Line Maintenance Supervisor: Phonak Model: Audeo [id number] Battery Size: 13 Color: Graphite Nicolas Conche Loader And Unloader: 1M Left ear: Line Maintenance Supervisor: Phonak Model: Audeo [id number] Battery Size: 13 Color: Graphite Nicolas Conche Loader And Unloader: 1M Action Taken/Action Needed: Medical Clearance to be requested from PCP/ENT Hearing Instrument Fitting to be scheduled when materials arrive Primary Diagnosis: H90.3 Bilateral Sensorineural Hearing Loss Secondary Diagnosis: H93.13 Tinnitus, Bilateral Signature: Provider: Cornell Candelaria, [facility]
== END 2022-02-09 13:10 | disposition home or self-care (01) ==
LOC: HO.SH 13:09
PROVIDERS: Visit Provider Internal Medicine
DX: Z01.118 Encounter for examination of ears and hearing with other abnormal findings (principal); Z46.1 Encounter for fitting and adjustment of hearing aid; H90.3 Sensorineural hearing loss, bilateral; H93.13 Tinnitus, bilateral
CPT/HCPCS: 92557; 92567; 92591; V5010

== ENCOUNTER 2022-03-02 23:40 | Inpatient (IN) | payer OTHER, SELFPAY ==
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
[2022-03-02 23:53] VITALS: BP 153/100; PULSE 140; RESP 16; TEMP 36.9; O2SAT 97; BMI 25.1
--- NOTE | 2022-03-02 23:57 | ECG_ITS ---
Test Reason : PSYCH Blood Pressure : / mmHG Vent. Rate : 110 BPM Atrial Rate : 110 BPM P-R Int : 152 ms QRS Dur : 086 ms QT Int : 328 ms P-R-T Axes : 038 053 034 degrees QTc Int : 443 ms Sinus tachycardia Nonspecific T wave abnormality Borderline ECG When compared with ECG of 29-DEC-2021 12:06, Heart rate has increased Referred By: Sandra Rizvi Electronically Signed By:TONYA PORTER MD
[2022-03-02 23:58] VITALS: BP 161/109; PULSE 131; RESP 30; O2SAT 97
[2022-03-03] VITALS (9 sets, daily range): BP systolic 104–124; BP diastolic 72–89; PULSE 71–94; RESP 13–20; TEMP 36.3–37.1; O2SAT 96–99
[2022-03-03] MEDS: iohexoL 350 MG/ML 100 ML INFUS..BTL 80 ML IV (00:30)
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
[2022-03-03] MEDS: 0.9 % Sodium Chloride 1,000 ML 999 ML IVCONT (00:49)
[2022-03-03 00:53] LABS: Basophils Percent Auto 0.2 % (0-2); Eosinophils Percent Auto 0.1 % (0-4); Hematocrit 39.4 % (42.0-52.0); Imm Gran Abs Auto 0.04 X10*3/uL (0.00-0.03); Imm Gran Pct Auto 0.3 % (0.0-0.4); Lymphocytes Absolute Auto 1.6 X10*3/uL (1.2-4.9); Lymphocytes Percent Auto 12.2 % (20-40); MANUAL DIFF FLAG NO; Mean Corpuscular HGB Conc 35.5 g/dl (31.0-36.0); Mean Corpuscular Hemoglobin 30.5 pg (27.0-33.0); Mean Corpuscular Volume 85.8 fL (80.0-98.0); Mean Platelet Volume 10.3 fL (9.4-12.4); Monocytes Absolute Auto 0.6 X10*3/uL (0.1-1.2); Monocytes Percent Auto 4.7 % (2-11); Neutrophils Absolute Auto 10.6 x10*3/uL (2.0-8.3); Neutrophils Percent Auto 82.5 % (45-73); Platelet Count 182 X10*3/uL (160-400); Red Blood Count 4.59 X10*6/uL (4.60-5.80); Red Cell Distribution Width 11.9 % (11.0-16.0); White Blood Count 12.9 X10*3/uL (4.8-10.8)
[2022-03-03 00:59] LABS: INTERNATIONAL NORM RATIO 1.3 (0.9-1.1); Prothrombin Time 14.6 SEC (10.0-13.1)
[2022-03-03 01:10] LABS: Ethanol < 10 mg/dL
[2022-03-03 01:11] LABS: COVID-19 Test Negative (Negative)
[2022-03-03 01:13] LABS: Alanine Aminotransferase 12 U/L (0-40); Albumin Level 4.3 g/dL (3.5-5.0); Alkaline Phosphatase 101 U/L (39-117); Anion Gap 17 (12-20); Aspartate Amino Transferase 13 U/L (5-37); Bilirubin Direct 0.2 mg/dL (0.0-0.5); Bilirubin Total 0.5 mg/dL (0.0-1.0); Blood Urea Nitrogen 12 mg/dL (9-16); Calcium 9.1 mg/dL (8.4-10.2); Carbon Dioxide 23 mmol/L (22-29); Chloride 101 mmol/L (96-108); Creatinine Clr Calc Pharmacy 84.1; Estimated Glomerular Filt Rate > 60; Glucose Random 108 mg/dL (60-115); Potassium 3.8 mmol/L (3.3-5.1); Sodium 137 mmol/L (135-145); Total Protein 6.6 g/dL (6.5-8.0)
[2022-03-03 01:14] LABS: Troponin-I High Sensitivity 9.2 ng/L (<3.5-35.0)
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
[2022-03-03 02:34] LABS: Amphetamine Screen Urine Not Detected (Not Detect); Barbiturates, Urine Not Detected (Not Detect); Benzodiazepines Screen Urine Not Detected (Not Detect); Cannabinoid Screen Urine POSITIVE (Not Detect); Cocaine Screen Urine Not Detected (Not Detect); Fentanyl, urine Not Detected (Not Detect); Opiate Screen Urine Not Detected (Not Detect); Phencyclidine Screen Urine Not Detected (Not Detect)
--- NOTE | 2022-03-03 03:59 | PC.NURSE ---
Pt seen by DONOVAN. Psychiatric bed search. Pt resting comfortably on stretcher. Call le within reach. 1:[address]
--- NOTE | 2022-03-03 08:27 | PC.NURSE ---
sitter at bedside, calm, pleasant, nad
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
[2022-03-03] MEDS: Nicotine Polacrilex 2 MG GUM BUCCAL (10:25)
--- NOTE | 2022-03-03 12:36 | PC.NURSE ---
rn to rn report given to becky.pt aware of plan of care for in patient admission.
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
[2022-03-04 07:21] LABS: MANUAL DIFF FLAG NO
[2022-03-04 07:26] LABS: Basophils Percent Auto 0.5 % (0-2); Eosinophils Absolute Auto 0.1 X10*3/uL (0.0-0.4); Eosinophils Percent Auto 1.3 % (0-4); Hematocrit 45.2 % (42.0-52.0); Hemoglobin 15.4 g/dl (14.0-18.0); Imm Gran Abs Auto 0.02 X10*3/uL (0.00-0.03); Imm Gran Pct Auto 0.2 % (0.0-0.4); Lymphocytes Absolute Auto 2.2 X10*3/uL (1.2-4.9); Lymphocytes Percent Auto 24.9 % (20-40); Mean Corpuscular HGB Conc 34.1 g/dl (31.0-36.0); Mean Corpuscular Hemoglobin 30.8 pg (27.0-33.0); Mean Corpuscular Volume 90.4 fL (80.0-98.0); Mean Platelet Volume 10.1 fL (9.4-12.4); Monocytes Absolute Auto 0.5 X10*3/uL (0.1-1.2); Monocytes Percent Auto 5.1 % (2-11); Neutrophils Absolute Auto 5.9 x10*3/uL (2.0-8.3); Platelet Count 205 X10*3/uL (160-400); Red Cell Distribution Width 12.4 % (11.0-16.0); White Blood Count 8.7 X10*3/uL (4.8-10.8)
[2022-03-04 07:48] LABS: Estimated Average Glucose 94 mg/dL; Hemoglobin A1c % 4.9 %
[2022-03-04 07:59] LABS: Alanine Aminotransferase 15 U/L (0-40); Albumin Level 4.6 g/dL (3.5-5.0); Alkaline Phosphatase 108 U/L (39-117); Anion Gap 16 (12-20); Aspartate Amino Transferase 17 U/L (5-37); Bilirubin Total 0.8 mg/dL (0.0-1.0); Blood Urea Nitrogen 13 mg/dL (9-16); Calcium 9.7 mg/dL (8.4-10.2); Carbon Dioxide 27 mmol/L (22-29); Chloride 105 mmol/L (96-108); Cholesterol 160 mg/dL; Creatinine Clr Calc Pharmacy 82.5; Estimated Glomerular Filt Rate > 60; Glucose Fasting 96 mg/dL (60-99); HDL Cholesterol 37 mg/dL; LDL Cholesterol Calculated 97 mg/dl; Potassium 4.4 mmol/L (3.3-5.1); Sodium 144 mmol/L (135-145); Total Protein 7.2 g/dL (6.5-8.0); Triglycerides 130 mg/dL
[2022-03-04 09:40] VITALS: BP 127/79; PULSE 81; RESP 18; TEMP 36.7; O2SAT 97
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
[2022-03-04 15:44] VITALS: BP 112/58; PULSE 82; TEMP 36.6
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
[2022-03-04] MEDS: Nicotine Polacrilex 2 MG GUM 4 MG BUCCAL (17:12)
[2022-03-04] MEDS: Nicotine 21 MG PATCH.TD24 TRANSDERMA (17:12)
[2022-03-04] MEDS: OLANZapine 5 MG TABLET PO (20:18)
[2022-03-04] MEDS: traZODone HCL 50 MG TABLET PO (20:18)
[2022-03-05 06:00] VITALS: BP 109/64; PULSE 90; RESP 18; TEMP 36.9; O2SAT 95
[2022-03-05] MEDS: Nicotine 21 MG PATCH.TD24 TRANSDERMA (09:12)
--- NOTE | 2022-03-05 13:32 | HO.PSYCHPN ---
Subjective Subjective Date of Service: 03/05/22 Reason For Visit: paranoid delusions Subjective Notes: Conditional Voluntary Interim History: Patient does appear much less anxious today. Does not appear to be internally preoccupied. Open in discussing symptoms. Accepting of Education around psychosis and antipsychotic medications. Denies depression or SI. Still reports feeling overwhelmed and scared regarding his mental state and admission circumstances. Feels safe on the unit. Denies paranoia. Denies hallucinations of voices or music. Looks forward to meeting with his primary team tomorrow Medication Compliance: Yes Side effects from medications: No Attending Groups: Yes Review of Systems Acute medical concerns: No Review of Systems Review of Systems Casually dressed. Good hygiene. Organized. Much less anxious and affect. No depression. No SI or HI. No overt psychosis noted. Insight and judgment good Yes all other systems are reviewed and are negative Mental Status Exam Mental Status Exam Narrative: Hospital clothing. Pleasant. Engaged. Does appear overwhelmed at times. And anxious. Denies depression or SI. No HI. Less paranoid. Denies hallucinations. Insight and judgment okay Diagnostics Vital Signs (24Hr): Vital Signs - 24 hr 03/04/22 15:44 03/05/22 06:00 Temperature 97.8 F 98.5 F Pulse Rate 82 90 Respiratory Rate 18 Blood Pressure 112/58 L 109/64 Pulse Oximetry 95 Oxygen Delivery Method Room Air BMI result Body Mass Index 25.1 Labs Results: 03/04/22 07:16 03/04/22 07:16 Labs: Laboratory Results - last 48 hr 03/04/22 03/04/22 03/04/22 07:16 07:16 07:16 WBC 8.7 RBC 5.00 Hgb 15.4 Hct 45.2 MCV 90.4 MCH 30.8 MCHC 34.1 RDW 12.4 Plt Count 205 MPV 10.1 Immature Gran % (Auto) 0.2 Neut % (Auto) 68.0 Lymph % (Auto) 24.9 [place] % (Auto) 5.1 Eos % (Auto) 1.3 Baso % (Auto) 0.5 Lymph # (Auto) 2.2 [place] # (Auto) 0.5 Eos # (Auto) 0.1 Baso # (Auto) 0.0 Abs Immat Gran (auto) 0.02 Absolute Neuts (auto) 5.9 Absolute Nucleated RBC 0.000 Nucleated RBC % (auto) 0.0 Sodium 144 Potassium 4.4 Chloride 105 Carbon Dioxide 27 Anion Gap 16 BUN 13 Creatinine 1.07 Estim Creat Clear Calc 82.5 Estimated GFR > 60 Fasting Glucose 96 Estimat Average Glucose 94 Hemoglobin A1c % 4.9 Calcium 9.7 D Total Bilirubin 0.8 AST 17 ALT 15 Alkaline Phosphatase 108 Total Protein 7.2 Albumin 4.6 Triglycerides 130 Cholesterol 160 D LDL Cholesterol, Calc 97 HDL Cholesterol 37 Imaging Radiology Impressions: ITS Impressions Chest X-Ray 03/03/22 00:08 IMPRESSION: No acute cardiopulmonary findings. Lower Extremity CTA 03/03/22 00:29 IMPRESSION: No acute vascular abnormality identified. Soft tissue injury in the medial proximal to mid thigh. Medications Medications Current Medications Acetaminophen (Acetaminophen 325 Mg Tablet) 650 mg PO Q6H PRN PRN Reason: Headache/Pain Mild Scale (1-3) Al Hydroxide/Mg Hydroxide (Magnesium Hydrox/Alum Hydrox 30 Ml Oral.Susp) 30 ml PO Q6H PRN PRN Reason: Heartburn/Nausea Diphenhydramine HCl (Diphenhydramine Hcl 25 Mg Capsule) 50 mg PO Q4H PRN PRN Reason: agitation Haloperidol (Haloperidol 5 Mg Tablet) 5 mg PO Q4H PRN PRN Reason: agitation Hydroxyzine HCl (Hydroxyzine Hcl 25 Mg Tablet) 25 mg PO Q6H PRN PRN Reason: Anxiety Lorazepam (Lorazepam 1 Mg Tablet) 2 mg PO Q4H PRN PRN Reason: agitation Magnesium Hydroxide (Milk Of Magnesia 30 Ml Oral.Susp) 30 ml PO DAILY PRN PRN Reason: Constipation Nicotine (Nicotine 21 Mg Patch.Td24) 21 mg TRANSDERMA DAILY [facility] Last Admin: 03/05/22 09:12 Dose: 21 mg Nicotine Polacrilex (Nicotine Polacrilex 2 Mg Gum) 4 mg BUCCAL Q2H PRN PRN Reason: Nicotine Cravings Last Admin: 03/04/22 17:12 Dose: 4 mg Olanzapine (Olanzapine 5 Mg Tablet) 5 mg PO BEDTIME [facility] Last Admin: 03/04/22 20:18 Dose: 5 mg Trazodone HCl (Trazodone Hcl 50 Mg Tablet) 50 mg PO BEDTIME PRN PRN Reason: Insomnia Last Admin: 03/04/22 20:18 Dose: 50 mg Allergies Allergies Allergy/AdvReac Type Severity Reaction Status Date / Time No Known Allergies Allergy Verified 01/18/22 13:25 [No Known Allergies*] Assessment & Plan Assessment & Plan (1) Psychosis: Status: Acute Code(s): F29 - Unspecified psychosis not due to a substance or known physiological condition Assessment and Plan: He presents with delusions and hallucinations and significant self-harm associated with same. Could benefit from scheduled medications. Will start Zyprexa at bedtime. 03/05/2022: No changes to current treatment plan I spent minutes with the patient and/or on the patient floor today, greater than?50% of which was spent counseling/coordinating care. Reason for contiued inpatient stay Substantial Risk for: harm to self
[2022-03-05 16:01] VITALS: BP 123/83; PULSE 92
[2022-03-05] MEDS: OLANZapine 5 MG TABLET PO (21:25)
[2022-03-05 21:40] VITALS: BP 144/80; PULSE 75; RESP 16; TEMP 36.4
[2022-03-05] MEDS: Acetaminophen 325 MG TABLET 650 MG PO (22:04)
--- NOTE | 2022-03-05 22:24 | PC.NURSE ---
PT reports urinating only small amounts of urine since being admitted. At this time pt reports he has not urinated today and has been drinking plenty of fluids. Bladder scan= [address] Guerrero, 1mg of Ativan given, if no effect in one hour, straight cath.
[2022-03-06 06:00] VITALS: BP 111/78; PULSE 68; RESP 18
[2022-03-06] MEDS: Nicotine 21 MG PATCH.TD24 TRANSDERMA (08:20)
[2022-03-06] MEDS: LORazepam 1 MG TABLET PO (08:21)
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
[2022-03-06] MEDS: Milk of Magnesia 30 ML ORAL.SUSP PO ×2 (16:31→20:52)
[2022-03-06] MEDS: Nicotine Polacrilex 2 MG GUM 4 MG BUCCAL ×2 (16:31→20:52)
[2022-03-06 19:05] VITALS: BP 132/92; PULSE 95; RESP 16; TEMP 36.4; O2SAT 100
[2022-03-06] MEDS: OLANZapine 5 MG TABLET PO (20:09)
[2022-03-07 06:00] VITALS: BP 127/85; PULSE 69; RESP 18; TEMP 36.7; O2SAT 100
[2022-03-07] MEDS: Nicotine 21 MG PATCH.TD24 TRANSDERMA (08:02)
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
[2022-03-07 18:00] VITALS: BP 138/95; PULSE 91; RESP 18
[2022-03-07] MEDS: OLANZapine 10 MG TABLET PO (20:50)
[2022-03-07] MEDS: Nicotine Polacrilex 2 MG GUM 4 MG BUCCAL (20:55)
[2022-03-08 08:36] VITALS: BP 118/78; PULSE 64; RESP 17; TEMP 36.5; O2SAT 99
[2022-03-08] MEDS: Nicotine 21 MG PATCH.TD24 TRANSDERMA (08:37)
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
[2022-03-08 18:00] VITALS: BP 112/68; PULSE 66; RESP 18; TEMP 36.4; O2SAT 96
[2022-03-08] MEDS: OLANZapine 10 MG TABLET PO (21:15)
[2022-03-08] MEDS: Nortriptyline HCl 25 MG CAPSULE PO (21:15)
[2022-03-08] MEDS: Nicotine Polacrilex 2 MG GUM 4 MG BUCCAL (21:19)
[2022-03-09 06:00] VITALS: BP 119/78; PULSE 88; RESP 16; TEMP 36.9; O2SAT 98
[2022-03-09 07:00] VITALS: BMI 23.4
[2022-03-09] MEDS: Nicotine 21 MG PATCH.TD24 TRANSDERMA (09:20)
[2022-03-09] MEDS: Nicotine Polacrilex 2 MG GUM 4 MG BUCCAL ×2 (09:23→14:36)
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
[2022-03-09] MEDS: OLANZapine 5 MG TABLET PO (14:33)
[2022-03-09] MEDS: Docusate Sodium 100 MG CAPSULE PO (14:33)
[2022-03-09] MEDS: Milk of Magnesia 30 ML ORAL.SUSP PO (14:33)
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
[2022-03-09 19:42] VITALS: BP 122/78; PULSE 100; TEMP 38.2
[2022-03-09] MEDS: Nortriptyline HCl 25 MG CAPSULE PO (20:30)
[2022-03-09] MEDS: traZODone HCL 100 MG TABLET PO (20:30)
[2022-03-09] MEDS: OLANZapine 7.5 MG TABLET 15 MG PO (20:30)
[2022-03-09 20:53] LABS: COVID-19 Test Positive (Negative)
[2022-03-10 06:00] VITALS: BP 128/76; PULSE 66; RESP 18; TEMP 37.7; O2SAT 97
[2022-03-10] MEDS: Nicotine 21 MG PATCH.TD24 TRANSDERMA (09:51)
[2022-03-10] MEDS: Milk of Magnesia 30 ML ORAL.SUSP PO (09:53)
[2022-03-10] MEDS: Nicotine Polacrilex 2 MG GUM 4 MG BUCCAL ×2 (11:16→21:36)
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
[2022-03-10 20:15] VITALS: BP 102/67; PULSE 109; RESP 18; O2SAT 97
[2022-03-10] MEDS: Nortriptyline HCl 25 MG CAPSULE PO (21:36)
[2022-03-10] MEDS: traZODone HCL 100 MG TABLET PO (21:36)
[2022-03-10] MEDS: OLANZapine 7.5 MG TABLET 15 MG PO (21:36)
[2022-03-11 06:00] VITALS: BP 108/68; PULSE 89; TEMP 35.5; O2SAT 97
[2022-03-11] MEDS: Milk of Magnesia 30 ML ORAL.SUSP PO (08:52)
[2022-03-11] MEDS: Nicotine 21 MG PATCH.TD24 TRANSDERMA (08:52)
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
--- NOTE | 2022-03-11 10:33 | PC.NURSE ---
Pt refusing to have dressing for his wound. Pt stated he feels that the wound is healing fine and does not want it covered
[2022-03-11] MEDS: Nicotine Polacrilex 2 MG GUM 4 MG BUCCAL ×2 (15:24→22:33)
[2022-03-11 21:20] VITALS: BP 113/72; PULSE 97; RESP 16; TEMP 36.6; O2SAT 96
[2022-03-11] MEDS: OLANZapine 7.5 MG TABLET 15 MG PO (21:23)
[2022-03-11] MEDS: traZODone HCL 100 MG TABLET PO (21:23)
[2022-03-11] MEDS: Nortriptyline HCl 25 MG CAPSULE PO (21:24)
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
[2022-03-12] MEDS: Nicotine Polacrilex 2 MG GUM 4 MG BUCCAL ×3 (10:28→21:02)
[2022-03-12] MEDS: Nicotine 21 MG PATCH.TD24 TRANSDERMA (10:29)
[2022-03-12] MEDS: Milk of Magnesia 30 ML ORAL.SUSP PO (10:29)
[2022-03-12 10:38] VITALS: BP 130/89; PULSE 87; RESP 16; TEMP 36; O2SAT 99
[2022-03-12 21:00] VITALS: BP 133/84; PULSE 104; RESP 16; TEMP 36.3; O2SAT 97
[2022-03-12] MEDS: Nortriptyline HCl 25 MG CAPSULE PO (21:02)
[2022-03-12] MEDS: OLANZapine 7.5 MG TABLET 15 MG PO (21:02)
[2022-03-12] MEDS: traZODone HCL 100 MG TABLET PO (21:02)
[2022-03-12] MEDS: traZODone HCL 50 MG TABLET PO (22:53)
[2022-03-13 08:54] VITALS: BP 133/86; PULSE 95; RESP 17; TEMP 35.6; O2SAT 97
[2022-03-13] MEDS: Nicotine 21 MG PATCH.TD24 TRANSDERMA (09:02)
[2022-03-13] MEDS: Milk of Magnesia 30 ML ORAL.SUSP PO (09:02)
[2022-03-13] MEDS: Nicotine Polacrilex 2 MG GUM 4 MG BUCCAL ×4 (09:02→20:43)
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
[2022-03-13 19:30] VITALS: BP 125/85; PULSE 93; RESP 18; TEMP 36.5; O2SAT 97
[2022-03-13] MEDS: Nortriptyline HCl 25 MG CAPSULE PO (21:02)
[2022-03-13] MEDS: OLANZapine 7.5 MG TABLET 15 MG PO (21:02)
[2022-03-13] MEDS: traZODone HCL 100 MG TABLET PO (21:02)
[2022-03-14] MEDS: Nicotine 21 MG PATCH.TD24 TRANSDERMA (08:24)
[2022-03-14] MEDS: Milk of Magnesia 30 ML ORAL.SUSP PO (08:24)
[2022-03-14 08:50] VITALS: BP 123/82; PULSE 91; RESP 18; TEMP 35.5; O2SAT 97
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
[2022-03-14] MEDS: Nicotine Polacrilex 2 MG GUM 4 MG BUCCAL (10:46)
--- NOTE | 2022-03-14 11:17 | PC.NURSE ---
Patient A & O x4. Juanito denies SI/HI/AH/VH. Endorses anxiety at this time, but reported that he felt safe to discharge.
== END 2022-03-14 11:30 | disposition home or self-care (01) | DRG 750 ==
LOC: HO.ED 03-03 09:30 → HO.PM5 03-03 13:53 → HO.PADLT16 03-10 16:24
PROVIDERS: Emergency Medicine; Psychiatry & Neurology Psychiatry; Admitting Provider Psychiatry & Neurology Psychiatry; Emergency Provider Internal Medicine; Visit Provider Psychiatry & Neurology Psychiatry
DX: F20.9 Schizophrenia, unspecified (principal); U07.1 COVID-19; S21.111A Laceration without foreign body of right front wall of thorax without penetration into thoracic cavity, initial encounter; S71.111A Laceration without foreign body, right thigh, initial encounter; X78.1XXA Intentional self-harm by knife, initial encounter; F17.210 Nicotine dependence, cigarettes, uncomplicated; F43.12 Post-traumatic stress disorder, chronic; Z71.6 Tobacco abuse counseling; Z87.820 Personal history of traumatic brain injury; Z79.899 Other long term (current) drug therapy
CPT/HCPCS: 36415; 71045; 73706; 80048; 80053; 80061; 80076; 80307; 82077; 83036; 84484; 85025; 85610; 87635; 93005; 99285; Q9967

== ENCOUNTER → 2022-09-06 13:00 | Outpatient (BNVA) | payer OTHER, SELFPAY | PROVIDERS: PCP Family Medicine; Visit Provider Nurse Practitioner Family | DX: R41.3 Other amnesia (principal); F43.12 Post-traumatic stress disorder, chronic; R25.1 Tremor, unspecified; R44.0 Auditory hallucinations; F41.8 Other specified anxiety disorders; Z87.828 Personal history of other (healed) physical injury and trauma | CPT/HCPCS: 99202 ==

== ENCOUNTER 2022-09-13 10:26 | Outpatient (REF) | payer OTHER, SELFPAY ==
[2022-09-13 14:28] LABS: Alanine Aminotransferase 21 U/L (0-40); Albumin Level 4.6 g/dL (3.5-5.0); Alkaline Phosphatase 104 U/L (39-117); Anion Gap 15 (12-20); Aspartate Amino Transferase 15 U/L (5-37); Bilirubin Total 0.8 mg/dL (0.0-1.0); Blood Urea Nitrogen 13 mg/dL (9-16); Carbon Dioxide 25 mmol/L (22-29); Chloride 106 mmol/L (96-108); Cholesterol 264 mg/dL; Estimated Glomerular Filt Rate > 60; Glucose Fasting 91 mg/dL (60-99); HDL Cholesterol 33 mg/dL; LDL Cholesterol Calculated 167 mg/dl; Potassium 4.1 mmol/L (3.3-5.1); Sodium 142 mmol/L (135-145); Total Protein 7.4 g/dL (6.5-8.0); Triglycerides 321 mg/dL
== END 2022-09-13 10:27 | disposition home or self-care (01) ==
LOC: HO.WFDLDS 10:26
PROVIDERS: Visit Provider Family Medicine
DX: Z00.00 Encounter for general adult medical examination without abnormal findings (principal)
CPT/HCPCS: 36415; 80053; 80061

== ENCOUNTER 2022-09-14 11:15 | Outpatient (REF) | payer OTHER, SELFPAY ==
[2022-09-14 12:49] LABS: Erythrocyte Sedimentation Rate 11 MM/HR (0-15)
[2022-09-14 13:47] LABS: Folate 7.6 ng/mL (> or = 4.0); Vitamin B12 608 pg/mL (200-900)
[2022-09-15 08:51] LABS: HIV AB/AG Nonreactive (Nonreactive); HIV Num 1 0.05 S/CO (0.00-0.99)
[2022-09-15 08:55] LABS: Syphilis Screen Nonreactive (Nonreactive)
[2022-09-16 16:48] LABS: CRP High Sensitivity 6.2 mg/L
[2022-09-20 16:48] LABS: Vitamin B1 8 nmol/L (8-30)
== END 2022-09-14 11:16 | disposition home or self-care (01) ==
LOC: HO.LAB 11:15
PROVIDERS: PCP Family Medicine; Visit Provider Nurse Practitioner Family
DX: Z11.4 Encounter for screening for human immunodeficiency virus [HIV] (principal); F41.8 Other specified anxiety disorders; R25.1 Tremor, unspecified; R41.3 Other amnesia
CPT/HCPCS: 36415; 82607; 82746; 84425; 85652; 86141; 86780; 87389

== ENCOUNTER → 2022-11-24 15:17 | Outpatient (BNVA) | payer OTHER, SELFPAY | PROVIDERS: PCP Family Medicine; Visit Provider Nurse Practitioner Family | DX: R25.1 Tremor, unspecified (principal); R41.3 Other amnesia; Z87.828 Personal history of other (healed) physical injury and trauma | CPT/HCPCS: 99212 ==

== ENCOUNTER 2023-05-01 11:45 | Outpatient (AMB) | payer OTHER, SELFPAY ==
--- NOTE | 2023-05-01 12:05 | A.OFFPC_ITS ---
Vital Signs 05/01/23 12:06 Height 5 ft 9 in Weight 179 lb 2 oz BMI 26.4 BP 120/72 Blood Pressure Location Lt brachial Position Sitting Pulse 97 Pulse Source Pulse Oximeter Pulse Oximetry (%) 97 Oxygen Delivery Method Room Air Intake Visit Reasons: CPE- NEEDS PHQ-9+ THRIVE Intake Note: Patient is here for his physical today. He is concerned of insomnia sometimes. Allergies hayfever Allergy (Unknown, Uncoded 05/01/23 12:07) Unknown Tobacco use date assessed: 05/01/23 Dental Screening Dental Screen Date: 05/01/23 Did you have a dental visit in the last 12 months?: No Did you have a dental problem in the last 6 months where you did not have access to dental care?: No Was dental information given to patient?: No HPI CPE- NEEDS PHQ-9+ THRIVE HPI Details 52 y/o male presents for a CPE with f/u labs and health maintenance. No recent labs to review. Pt reports bilateral hearing loss but has not trialed hearing aids yet. [facility] Medical History Chronic post-traumatic stress disorder (PTSD) Schizophrenia Chronic back pain Scoliosis Hypertension Laceration Surgical History S/P tendon repair Family History Father Skin cancer Social History Household Members: None Housing: Apartment Do you presently have visiting nurse or other home services: No Alcohol intake: current Alcohol intake frequency: former alcohol drinker Alcohol type: beer Patient Tobacco Use Status: Current everyday Tobacco user Tobacco use type: Cigarette Cigarette Packs Per Day: 10 Cigarettes Per Day: 10 Years Smoked: 35 e-Cigarette/Vaping Use: Never Used Second Hand Smoke Exposure: Yes service: No Current occupational exposures/hazards: No Sexual orientation: Straight/Heterosexual Cognitive needs: No Hearing needs: No Vision needs: No Questionnaire PHQ-9 Over the last 2 weeks, how often have you been bothered by any of the following problems? 1. Little interest or pleasure in doing things: not at all 2. Feeling down, depressed, or hopeless: not at all 3. Trouble falling or staying asleep, or sleeping too much: not at all 4. Feeling tired or having little energy: not at all 5. Poor appetite or overeating: not at all 6. Feeling bad about yourself - or that you are a failure or have let yourself or your family down: not at all 7. Trouble concentrating on things, such as reading the newspaper or watching television: not at all 8. Moving or speaking so slowly that other people could have noticed. Or the opposite - being so fidgety or restless that you have been moving around a lot more than usual: not at all 9. Thoughts that you would be better off or of hurting yourself in some way: not at all Total score: 0 Source: Developed by Drs. Jonatan Bar, Stephany Grigsby, Kayden Peck and colleagues, with an educational kala from [employer]. Thrive Questionnaire Date Thrive assessed: 05/01/23 I am a: Patient What is your living situation today?: I have a steady place to live Within the past 12 months, did the food you bought not last and you didn't have the money to get more?: Never true Within the past 12 months, did you worry whether your food would run out before you got money to buy more?: Never true Do you have trouble paying for medicines?: No Do you have trouble getting transportation to medical appointments?: No Do you have trouble paying your heating and electricity bill?: No Do you have trouble taking care of your child, family member or friend?: No Do you have trouble with day-to-day activities such as bathing, preparing meals, shopping, managing finances, etc.?: No Are you currently unemployed and looking for a job?: No Are you interested in more education?: No AUDIT C Alcohol Use Questionnaire (AUDIT-C) 1. How often do you have a drink containing alcohol?: Never 3. How often do you have six or more drinks on one occasion?: Never Total Score: 0 VALERIA-7 AMB Questionnaire VALERIA-7 Date VALERIA - 7 assessed: 05/01/23 Feeling nervous, anxious, or on edge: 1 = Several days Not being able to stop or control worryin = Not at all Worrying too much about different things: 0 = Not at all Trouble relaxin = Several days Being so restless that it is hard to sit still: 1 = Several days Becoming easily annoyed or irritable: 0 = Not at all Feeling afraid as if something awful might happen: 1 = Several days Total VALERIA-7 score (0-4 normal; 5-9 mild; 10-14 moderate; 15-21 severe): 4 Source: Developed by Drs. Jonatan Bar, Stephany Grigsby, Kayden Peck and colleagues, with an educational kala from [employer]. Review of Systems Const Denies chills, Denies fatigue, Denies fever(s), Denies headache(s) and Denies weakness Eyes Denies change in vision ENT Denies dizziness, Denies headache(s), Denies hearing loss, Denies nasal congestion, Denies sinus pain, Denies sinus pressure and Denies sore throat Card Denies chest pain, Denies lightheadedness, Denies dyspnea and Denies other (palpitations) Resp Denies cough, Denies dyspnea and Denies wheezing GI Denies abdominal pain, Denies melena, Denies hematochezia, Denies change in bowel habits, Denies dyspepsia and Denies nausea Denies hematuria and Denies dysuria Musc Denies abnormal gait, Denies myalgias, Denies arthralgias, Denies numbness and Denies tingling Skin/Breast Denies rash, Denies unusual bruising and Denies wounds Neuro Denies abnormal gait, Denies dizziness, Denies headache(s), Denies memory loss, Denies numbness, Denies Sensory deficit (Neuro), Denies tingling and Denies weakness Psych Denies anxiety, Denies depression and Denies memory loss Endo Denies cold intolerance, Denies fatigue, Denies heat intolerance, Denies polydipsia and Denies polyuria Yves/Lymph Denies easy bleeding and Denies easy bruising Aller/Immun Denies wheezing Physical exam (Primary Care) Vital Signs: Last Vital Signs Pulse 97 05/01/23 12:06 BP 120/72 05/01/23 12:06 Pulse Ox 97 05/01/23 12:06 Oxygen Delivery Method Room Air 05/01/23 12:06 BMI result Body Mass Index 26.4 Tobacco/Smoking Status: Tobacco use Status Tobacco use date assessed 05/01/23 05/01/23 12:08 Patient Tobacco Use Status Current everyday Tobacco 05/01/23 12:08 Tobacco use type Cigarette 05/01/23 12:08 e-Cigarette/Vaping Use Never Used 05/01/23 12:08 PHQ-9: PHQ-9 Score PHQ-9: Total score 0 05/01/23 12:31 Thrive Assessment: Date of Thrive Assessment Date Thrive assessed 05/01/23 05/01/23 12:14 Const General: no acute distress, well developed, alert and awake Nutritional Appearance: well nourished Orientation/consciousness: patient oriented x3 HENMT Head: Yes normocephalic and Yes atraumatic Ears: hearing grossly normal bilaterally and TM's normal bilaterally General nose exam: Normal external nose present and Normal nares present Mouth: Normal oral and palatal mucosa present and moist mucous membranes Teeth and gingiva: dentition normal Throat: Yes posterior oropharynx normal Eyes General: appearance normal, both eyes and all related structures Pupils: Equal, round and reactive pupils present and Pupil accommodation reflex normal EOM: EOMs intact bilaterally Neck Neck: Yes normal visual inspection, Yes no lymphadenopathy and Yes trachea midline Thyroid: Thyroid normal Carotids: no bruits Lymphatic: no lymphadenopathy noted Chest Chest palpation & inspection: normal inspection of the chest Resp Effort & Inspection: normal respiratory effort Auscultation: clear to auscultation bilaterally Cardio Rate: regular rate Rhythm: regular rhythm Heart sounds: S1 normal heart sound present, S2 normal heart sound present, no gallops, no murmurs and no rubs Bruits: no abdominal aortic bruits and no carotid bruits GI Palpation (GI): No Abdominal aortic bruit present, Soft to palpation, nontender, No hepatosplenomegaly present and No Rebound tenderness present Auscultation: normal bowel sounds General: Yes no CVA tenderness Back/Spine/Pelvis Back: no CVA tenderness Cervical Spine: cervical ROM normal and No Cervical spine tenderness Thoracic/Lumbar Spine: thoraco-lumbar ROM normal, No pain with thoraco-lumbar ROM, No thoracic spinal tenderness and No lumbar spinal tenderness Skin Lesions: no lesions Rashes: no rashes Trauma: no lacerations or abrasions Wounds: no wounds Nails: normal Neuro General: patient oriented x3 Cranial nerves: Yes Equal, round and reactive pupils present Cognition (Neuro): normal cognition Gait exam (Neuro): Normal gait present Motor exam (neuro): 5/5 motor strength present throughout Sensory Exam: No Sensory deficit (Neuro) Deep tendon reflexes (DTR's): Right patellar reflex intensity grade: 2+ and Left patellar reflex intensity grade: 2+ Extrem General: Yes normal to inspection and No edema Psych Appearance: grossly normal Affect: normal affect Attitude: cooperative Thought process: Normal thought process present Assessment and Plan Assessment & Plan (1) Adult general medical exam: Code(s): Z00.00 - Encounter for general adult medical examination without abnormal findings Plan: 52-year-old?male?presents?for?complete?physical Encouraged?healthy?diet?with?active?lifestyle?and?plenty?of?exercise (2) Hearing loss: Code(s): H91.90 - Unspecified hearing loss, unspecified ear Plan: Worsening?hearing?loss?and?tinnitus Referred?back?to?[facility]?speech?and?hearing?for?follow- up?audiology?and?consideration?of?amplification (3) Screening for colon cancer: Code(s): Z12.11 - Encounter for screening for malignant neoplasm of colon Plan: Patient?agrees?to?Cologuard?test-ordered (4) Screening for prostate cancer: Code(s): Z12.5 - Encounter for screening for malignant neoplasm of prostate Plan: Check?PSA Orders: Orders Comprehensive [place]. Panel Fast Today Z00.00 - Encounter for general adult medical examination without abnormal findings Lipid Panel Today Z00.00 - Encounter for general adult medical examination without abnormal findings Microalbumin, Random (w Creat) Today I10 - Essential (primary) hypertension TSH reflex Free T4 Today Z00.00 - Encounter for general adult medical examin ation without abnormal findings Vitamin B12 and Folate Today E53.8 - Deficiency of other specified B group vitamins Prostate Specific Antigen Scr Today Z12.5 - Encounter for screening for malignant neoplasm of prostate UA and rflx microscopic Today Z00.00 - Encounter for general adult medical examination without abnormal findings Complete Blood Count Auto Diff Today Z00.00 - Encounter for general adult medical examination without abnormal findings Referrals Audiology Referral H91.90 - Unspecified hearing loss, unspecified ear, H93.19 - Tinnitus, unspecified ear Cologuard Test Z12.11 - Encounter for screening for malignant neoplasm of colon, Z12.12 - Encounter for screening for malignant neoplasm of rectum Coding Level of Care Code Est Pt Prev Care 40-64y(77186) Diagnoses Adult general medical exam Z00.00 Hearing loss H91.90 Screening for colon cancer Z12.11 Screening for prostate cancer Z12.5
[2023-05-01 12:06] VITALS: BP 120/72; PULSE 97; O2SAT 97; BMI 26.4
== END 2023-05-01 13:03 | disposition home or self-care (01) ==
PROVIDERS: PCP Family Medicine; Visit Provider Family Medicine
DX: Z00.00 Encounter for general adult medical examination without abnormal findings (principal); H91.93 Unspecified hearing loss, bilateral; Z12.11 Encounter for screening for malignant neoplasm of colon; Z12.5 Encounter for screening for malignant neoplasm of prostate
CPT/HCPCS: 99396

== ENCOUNTER 2023-05-22 09:48 | Outpatient (AMB) | payer OTHER, SELFPAY ==
--- NOTE | 2023-05-22 09:57 | A.OFFVIS_ITS ---
Intake Vital Signs 05/22/23 10:04 Height 5 ft 9 in Weight 179 lb BMI 26.4 BP 110/80 Blood Pressure Location Rt brachial Position Sitting Pulse 94 Pulse Source Pulse Oximeter Pulse Oximetry (%) 97 Oxygen Delivery Method Room Air Intake Visit Reasons: 6m follow up MigrainE-Confirmed Intake Note: Patient presents for 6 month follow up migraine. I'm still having tinnitus every now and then Allergies hayfever Allergy (Unknown, Uncoded 05/22/23 10:04) Unknown Medication List - Last Reconciled 05/22/23 by MUSA Perez nicotine 21 mg transdermal DAILY PRN 28 days nicotine (polacrilex) 4 mg buccal Q2H 30 days thiamine HCl (vitamin B1) 100 mg PO DAILY 30 days HPI HPI Comments History of Present Illness Details 52-yr-old male presents for f/u visit. Pt denies any significant interval medical history changes. Pt states he is dong well overall. Has some occassional tinnitus. ADL's: Ind Orthostatic lightheadedness: Denies Freezing: Denies Stiffness: Denies Tremor: Does not notice Falls: None Hallucinations: None Memory: States stable. Has not heard from [facility] about neuro-psych testing. Sleep: Usually ok. May use some of his left over olanzapine for sleep occasionally. [facility] Medical History Chronic post-traumatic stress disorder (PTSD) Schizophrenia Chronic back pain Scoliosis Hypertension Laceration Surgical History S/P tendon repair Family History Father Skin cancer Social History Household Members: None Housing: Apartment Do you presently have visiting nurse or other home services: No Alcohol intake: current Alcohol intake frequency: former alcohol drinker Alcohol type: beer Patient Tobacco Use Status: Current everyday Tobacco user Tobacco use type: Cigarette Cigarette Packs Per Day: 10 Cigarettes Per Day: 10 Years Smoked: 35 e-Cigarette/Vaping Use: Never Used Second Hand Smoke Exposure: Yes service: No Current occupational exposures/hazards: No Sexual orientation: Straight/Heterosexual Cognitive needs: No Hearing needs: No Vision needs: No Review of Systems Const All systems reviewed & are unremarkable except as noted in HPI and below Physical Exam Vital Signs: Last Vital Signs Pulse 94 05/22/23 10:04 BP 110/80 05/22/23 10:04 Pulse Ox 97 05/22/23 10:04 Oxygen Delivery Method Room Air 05/22/23 10:04 BMI result Body Mass Index 26.4 Const General: cooperative and no acute distress Resp Effort & Inspection: normal respiratory effort and able to speak in complete sentences Neuro Other: A&O x's 3 Mild decreased expression and blink- improved LUE postural tremor- mild Mild tone in left elbow FFM- ok Foot taps- ok Pt able to stand w/o using arms, good stride, steady gait. MS; 5/5 Assessment & Plan Assessment & Plan (1) Tremor: Comment: DaTscan- normal Code(s): R25.1 - Tremor, unspecified (2) Laboratory exam ordered as part of routine general medical examination: Code(s): Z00.00 - Encounter for general adult medical examination without abnormal findings (3) Memory changes: Code(s): R41.3 - Other amnesia Plan DaTscan - normal. Pt's movement s/s have improved- possibly these were exacerbated by olanzapine use. Movement s/s may be secondary to h/o TBI, h/o alcohol abuse. Reviewed labs- overall NL. Continue Thiamine supplement. May use Olanzapine 7.5mg qhs prn insonia for now. If not done, recheck CRP and lipid panel at f/u. Neuropsych testing as ordered- will f/u Will monitor tremor and rigidity. f/u in 6 months or sooner prn. Medications: Changed From olanzapine 15 mg (2 x 7.5 mg) PO BEDTIME 60 tabs 0RF 30 days To olanzapine 7.5 mg PO BEDTIME 30 days PRN 30 tabs 1RF insomnia Coding Level of Care Code Est Pt Level 4 (01491) Diagnoses Tremor R25.1 Laboratory exam ordered as part of routine general medical examination Z00.00 Memory changes R41.3
[2023-05-22 10:04] VITALS: BP 110/80; PULSE 94; O2SAT 97; BMI 26.4
== END 2023-05-22 10:32 | disposition home or self-care (01) ==
PROVIDERS: PCP Family Medicine; Visit Provider Nurse Practitioner Family
DX: R25.1 Tremor, unspecified (principal); Z00.00 Encounter for general adult medical examination without abnormal findings; R41.3 Other amnesia
CPT/HCPCS: 99214

== ENCOUNTER → 2023-05-22 09:48 | Outpatient (BNVA) | payer OTHER, SELFPAY | PROVIDERS: PCP Family Medicine; Visit Provider Nurse Practitioner Family | DX: R25.1 Tremor, unspecified (principal); R41.3 Other amnesia; Z79.899 Other long term (current) drug therapy | CPT/HCPCS: 99212 ==

== ENCOUNTER 2023-06-26 08:44 | Outpatient (REF) | payer OTHER, SELFPAY ==
[2023-06-26 11:17] LABS: MANUAL DIFF FLAG NO
[2023-06-26 11:27] LABS: Basophils Absolute Auto 0.1 X10*3/uL (0.0-0.2); Eosinophils Absolute Auto 0.2 X10*3/uL (0.0-0.4); Eosinophils Percent Auto 1.9 % (0-4); Hematocrit 49.4 % (42.0-52.0); Hemoglobin 17.5 g/dl (14.0-18.0); Imm Gran Abs Auto 0.04 X10*3/uL (0.00-0.03); Imm Gran Pct Auto 0.5 % (0.0-0.4); Lymphocytes Absolute Auto 2.9 X10*3/uL (1.2-4.9); Mean Corpuscular HGB Conc 35.4 g/dl (31.0-36.0); Mean Corpuscular Hemoglobin 30.2 pg (27.0-33.0); Mean Corpuscular Volume 85.2 fL (80.0-98.0); Mean Platelet Volume 10.2 fL (9.4-12.4); Monocytes Absolute Auto 0.4 X10*3/uL (0.1-1.2); Monocytes Percent Auto 5.4 % (2-11); Neutrophils Absolute Auto 4.1 x10*3/uL (2.0-8.3); Neutrophils Percent Auto 53.2 % (45-73); Platelet Count 233 X10*3/uL (160-400); Red Cell Distribution Width 12.4 % (11.0-16.0); White Blood Count 7.7 X10*3/uL (4.8-10.8)
[2023-06-26 12:20] LABS: Alanine Aminotransferase 20 U/L (0-40); Albumin Level 4.4 g/dL (3.5-5.0); Alkaline Phosphatase 94 U/L (39-117); Anion Gap 16 (12-20); Aspartate Amino Transferase 17 U/L (5-37); Bilirubin Total 0.4 mg/dL (0.0-1.0); Blood Urea Nitrogen 13 mg/dL (9-16); Carbon Dioxide 23 mmol/L (22-29); Chloride 106 mmol/L (96-108); Cholesterol 277 mg/dL (<200); Estimated Glomerular Filt Rate > 60; Glucose Fasting 92 mg/dL (60-99); HDL Cholesterol 36 mg/dL (>40); LDL Cholesterol Calculated 164 mg/dL (<100); Potassium 4.1 mmol/L (3.3-5.1); Sodium 141 mmol/L (135-145); Total Protein 7.8 g/dL (6.5-8.0); Triglycerides 385 mg/dL (<150)
[2023-06-26 12:21] LABS: Folate 7.1 ng/mL (> or = 4.0); Prostate Specific Antigen Scr 0.65 ng/mL (<0.05-4.0); Vitamin B12 555 pg/mL (200-900)
== END 2023-06-26 08:45 | disposition home or self-care (01) ==
LOC: HO.WFDLDS 08:44
PROVIDERS: Visit Provider Family Medicine
DX: Z00.00 Encounter for general adult medical examination without abnormal findings (principal); Z12.5 Encounter for screening for malignant neoplasm of prostate; E53.8 Deficiency of other specified B group vitamins
CPT/HCPCS: 36415; 80053; 80061; 82607; 82746; 84153; 84443; 85025

== ENCOUNTER 2023-11-19 07:48 | Outpatient (AMB) | payer OTHER, SELFPAY ==
--- NOTE | 2023-11-19 07:56 | MHC.OFFVIS ---
Vital Signs 11/19/23 07:59 Height 5 ft 9 in Weight 181 lb BMI 26.7 BP 128/74 Blood Pressure Location Rt brachial Pulse 94 Pulse Source Pulse Oximeter Pulse Oximetry (%) 97 Oxygen Delivery Method Room Air Intake Visit Reasons: 6 mo f/u Migraines-LVM Intake Note: Patient presents for 6 month follow up migraines.havent gotten a migraine lately but is having trouble falling asleep. Allergies hayfever Allergy (Unknown, Uncoded 11/19/23 08:13) Unknown Medication List - Last Reconciled 11/19/23 by MUSA Perez amitriptyline 10 mg PO BEDTIME 30 days nicotine 21 mg transdermal DAILY PRN 28 days nicotine (polacrilex) 4 mg buccal Q2H 30 days olanzapine 7.5 mg PO BEDTIME PRN 30 days thiamine HCl (vitamin B1) 100 mg PO DAILY 30 days HPI Comments Details: 52-yr-old male presents for f/u visit. Pt denies any significant interval medical changes. Pt states his tremor is stable. His mood is stable. He is still not sleeping well. More difficulty falling asleep. Tries to go bed at 10pm, but may not sleep until 3-4am. He is not sure if he is tired by 10pm. Usually gets up at 8am- regardless of what time he falls asleep. Denies any cat naps or scheduled naps. He tends to just lay in bed, may turn the TV on. Takes a cola in the am, and sometimes a 2nd cola at 5-6pm. Using 1-2 tabs of the olanzapine for sleep. [facility] Medical History Chronic post-traumatic stress disorder (PTSD) Schizophrenia Chronic back pain Scoliosis Hypertension Laceration Surgical History S/P tendon repair Family History Father Skin cancer Social History Household Members: None Housing: Apartment Do you presently have visiting nurse or other home services: No Alcohol intake: current Alcohol intake frequency: former alcohol drinker Alcohol type: beer Patient Tobacco Use Status: Current everyday Tobacco user Tobacco use type: Cigarette Cigarette Packs Per Day: 10 Cigarettes Per Day: 10 Years Smoked: 35 e-Cigarette/Vaping Use: Never Used Second Hand Smoke Exposure: Yes service: No Current occupational exposures/hazards: No Sexual orientation: Straight/Heterosexual Cognitive needs: No Hearing needs: No Vision needs: No Review of Systems Const All systems reviewed & are unremarkable except as noted in HPI and below Physical Exam Vital Signs: Last Vital Signs Pulse 94 11/19/23 07:59 BP 128/74 11/19/23 07:59 Pulse Ox 97 11/19/23 07:59 Oxygen Delivery Method Room Air 11/19/23 07:59 BMI result Body Mass Index 26.7 Const General: cooperative and no acute distress Orientation/consciousness: patient oriented x3 HEENT Head: Yes normocephalic Resp Effort & Inspection: normal respiratory effort and able to speak in complete sentences Neuro Other: A&O x's 3 Mild decreased expression and blink- improved RUE postural tremor- mild BUE mild tone FFM- ok Foot taps- ok Pt able to stand w/o using arms, good stride, steady gait. General: patient oriented x3 and CN's II-XI intact bilaterally Cognition (Neuro): normal cognition Motor exam (neuro): 5/5 motor strength present throughout Psych Appearance: grossly normal Mental Status: mental status grossly normal Speech and movement: Clear speech present Affect: normal affect Attitude: cooperative Thought process: Normal thought process present Thought content: Normal thought content present Insight: Good insight present (Psych) Judgement: Good judgement present (Psych) Assessment & Plan Assessment & Plan (1) Tremor: Comment: DaTscan- normal Code(s): R25.1 - Tremor, unspecified Category: Medical (2) Insomnia: Code(s): G47.00 - Insomnia, unspecified Category: Medical Plan DaTscan - normal. Pt's movement s/s have improved- possibly these were exacerbated by olanzapine use. Movement s/s may be secondary to h/o TBI, h/o alcohol abuse. Continue Thiamine supplement. Reviewed strategies to optimize sleep hygiene- Limit cola/caffeine intake to before 2pm. Pt likely does not need to be sleeping 10pm-8am- likely needs 7-8hrs of sleep per night. Advised to go to bed when tired. Increase physical activity- try scheduling walks into his day. May benefit his HLD as well. In the meantime, trial Amitriptyline 10mg qhs for sleep. May use Olanzapine 7.5mg qhs prn insomnia- advised to use sparingly to minimize risk for TD and extrapyramidal s/s. Neuropsych testing as ordered. Monitor tremor and rigidity. f/u in 6 months or sooner prn. Medications: New amitriptyline 10 mg PO BEDTIME 30 days 30 tabs 3RF Coding Level of Care Code Est Pt Level 4 (02135) Diagnoses Tremor R25.1 Insomnia G47.00
[2023-11-19 07:59] VITALS: BP 128/74; PULSE 94; O2SAT 97; BMI 26.7
== END 2023-11-19 08:55 | disposition home or self-care (01) ==
PROVIDERS: PCP Family Medicine; Visit Provider Nurse Practitioner Family
DX: R25.1 Tremor, unspecified (principal); G47.00 Insomnia, unspecified
CPT/HCPCS: 99214

== ENCOUNTER → 2023-11-19 07:48 | Outpatient (BNVA) | payer OTHER, SELFPAY | PROVIDERS: PCP Family Medicine; Visit Provider Nurse Practitioner Family | DX: R25.1 Tremor, unspecified (principal); G47.00 Insomnia, unspecified | CPT/HCPCS: 99212 ==

== ENCOUNTER 2024-01-02 11:16 | Outpatient (AMB) | payer OTHER, SELFPAY ==
--- NOTE | 2024-01-02 11:45 | A.OFFPC_ITS ---
Vital Signs 01/02/24 11:46 Height 5 ft 9 in Weight 182 lb 8 oz BMI 26.9 BP 100/60 Blood Pressure Location Lt brachial Position Sitting Respiration 16 Pulse 91 Pulse Source Pulse Oximeter Temp 98 F Temp Source Tympanic Pulse Oximetry (%) 97 Oxygen Delivery Method Room Air Intake Visit Reasons: f/u CPE-labs from 05/12 Intake Note: follow up for labs Allergies hayfever Allergy (Unknown, Uncoded 11/19/23 08:13) Unknown Tobacco use date assessed: 05/01/23 Dental Screening Dental Screen Date: 05/01/23 HPI f/u CPE-labs from 05/12 HPI Details 53 y/o male presents to f/u labs. Labs drawn 06/26/23. Reviewed labs with pt. Triglycerides 385. TC 277. LDL 164. HDL low at 36. PSA 0.65. Continues to f/u with Neurology for tremor/insomnia. HPI Comments History of Present Illness Details Documentation assistance for Trevon Sequeira MD, was provided by Darryl Olmedo, [employer] Industrial Supervisor on 01/02/2024 at 11:53 AM EST. I, Dr. Sequeira, have read, observed, and verified documentation. [facility] Medical History Chronic post-traumatic stress disorder (PTSD) Schizophrenia Chronic back pain Scoliosis Hypertension Laceration Surgical History S/P tendon repair Family History Father Skin cancer Social History Household Members: None Housing: Apartment Do you presently have visiting nurse or other home services: No Alcohol intake: current Alcohol intake frequency: former alcohol drinker Alcohol type: beer Patient Tobacco Use Status: Current everyday Tobacco user Tobacco use type: Cigarette Cigarette Packs Per Day: 10 Cigarettes Per Day: 10 Years Smoked: 35 e-Cigarette/Vaping Use: Never Used Second Hand Smoke Exposure: Yes service: No Current occupational exposures/hazards: No Sexual orientation: Straight/Heterosexual Cognitive needs: No Hearing needs: No Vision needs: No Questionnaire Thrive Questionnaire Date Thrive assessed: 05/01/23 VALERIA-7 AMB Questionnaire VALERIA-7 Date VALERIA - 7 assessed: 05/01/23 Source: Developed by Drs. Jonatan Bar, Stephany Grigsby, Kayden Peck and colleagues, with an educational kala from [employer] Review of Systems Const Denies chills, Denies fatigue, Denies fever(s), Denies headache(s) and Denies weakness ENT Denies dizziness and Denies headache(s) Card Denies dyspnea Resp Denies cough, Denies dyspnea, Denies wheezing and Denies other (shortness of breath) Musc Denies numbness and Denies tingling Neuro Denies dizziness, Denies headache(s), Denies numbness, Denies tingling and Denies weakness Psych Denies anxiety and Denies depression Endo Denies fatigue Aller/Immun Denies wheezing Physical exam (Primary Care) Vital Signs: Last Vital Signs Temp 98 F 01/02/24 11:46 Pulse 91 01/02/24 11:46 Resp 16 01/02/24 11:46 BP 100/60 01/02/24 11:46 Pulse Ox 97 01/02/24 11:46 Oxygen Delivery Method Room Air 01/02/24 11:46 BMI result Body Mass Index 26.9 Tobacco/Smoking Status: Tobacco use Status Tobacco use date assessed 05/01/23 01/02/24 11:49 Patient Tobacco Use Status Current everyday Tobacco 01/02/24 11:49 Tobacco use type Cigarette 01/02/24 11:49 e-Cigarette/Vaping Use Never Used 01/02/24 11:49 Thrive Assessment: Date of Thrive Assessment Date Thrive assessed 05/01/23 01/02/24 11:49 Const General: well developed; No acute distress Nutritional Appearance: well nourished Orientation/consciousness: patient oriented x3 HENMT Head: Yes normocephalic and Yes atraumatic Eyes General: appearance normal, both eyes and all related structures Pupils: Equal, round and reactive pupils present EOM: EOMs intact bilaterally Resp Effort & Inspection: normal respiratory effort Neuro General: patient oriented x3 and gait normal Cranial nerves: Yes Equal, round and reactive pupils present Psych Affect: normal affect Assessment and Plan Assessment & Plan (1) Mixed hyperlipidemia: Code(s): E78.2 - Mixed hyperlipidemia Plan: LDL?and?triglycerides?are?significantly?high Start?rosuvastatin Will?follow-up?in?about?3?months (2) Low HDL (under 40): Code(s): E78.6 - Lipoprotein deficiency Plan: HDL?is?low?and?we?will?continue?to?monitor (3) Screening for prostate cancer: Code(s): Z12.5 - Encounter for screening for malignant neoplasm of prostate Plan: PSA?is?within?normal?limits Will?continue?annual?screening (4) Tremor: Comment: DaTscan- normal Code(s): R25.1 - Tremor, unspecified Plan: Now?followed?by?Neurology Medications: New rosuvastatin 20 mg PO DAILY 90 days 90 tabs 2RF Coding Level of Care Code Est Pt Level 3 (15133) Diagnoses Mixed hyperlipidemia E78.2 Low HDL (under 40) E78.6 Screening for prostate cancer Z12.5 Tremor R25.1
[2024-01-02 11:46] VITALS: BP 100/60; PULSE 91; RESP 16; TEMP 36.6; O2SAT 97; BMI 26.9
== END 2024-01-02 12:06 | disposition home or self-care (01) ==
PROVIDERS: PCP Family Medicine; Visit Provider Family Medicine
DX: E78.2 Mixed hyperlipidemia (principal); E78.6 Lipoprotein deficiency; Z12.5 Encounter for screening for malignant neoplasm of prostate; R25.1 Tremor, unspecified
CPT/HCPCS: 99213

== ENCOUNTER 2024-04-01 09:10 | Outpatient (REF) | payer OTHER, SELFPAY ==
[2024-04-01 11:36] LABS: Appearance Urine Clear; Color Urine Yellow; Glucose Urine UA Negative (Negative); Leukocyte Esterase Urine Negative (Negative); Nitrite Urine Negative (Negative); PH 5.5 (5.0-9.0); Urine Blood Negative (Negative); Urine Ketones Negative (Negative); Urine Protein Negative (Neg-Trace)
[2024-04-01 11:53] LABS: Creatinine Urine 111.16 mg/dL; Microalbumin Urine < 5.0 mg/L
[2024-04-01 11:53] LABS: Alanine Aminotransferase 27 U/L (0-40); Albumin Level 4.5 g/dL (3.5-5.0); Alkaline Phosphatase 90 U/L (39-117); Anion Gap 12 (12-20); Aspartate Amino Transferase 24 U/L (5-37); Bilirubin Total 0.5 mg/dL (0.0-1.0); Blood Urea Nitrogen 14 mg/dL (9-16); Carbon Dioxide 25 mmol/L (22-29); Chloride 106 mmol/L (96-108); Cholesterol 171 mg/dL (<200); Estimated Glomerular Filt Rate > 60; Glucose Fasting 91 mg/dL (60-99); HDL Cholesterol 36 mg/dL (>40); LDL Cholesterol Calculated 72 mg/dL (<100); Potassium 3.9 mmol/L (3.3-5.1); Sodium 139 mmol/L (135-145); Total Protein 7.7 g/dL (6.5-8.0); Triglycerides 317 mg/dL (<150)
== END 2024-04-01 09:11 | disposition home or self-care (01) ==
LOC: HO.WFDLDS 09:10
PROVIDERS: Visit Provider Family Medicine
DX: Z00.00 Encounter for general adult medical examination without abnormal findings (principal); I10 Essential (primary) hypertension; E78.1 Pure hyperglyceridemia
CPT/HCPCS: 36415; 80053; 80061; 81003; 82570

== ENCOUNTER 2024-04-04 08:35 | Outpatient (AMB) | payer OTHER, SELFPAY ==
--- NOTE | 2024-04-04 08:54 | MHC.PC.OV ---
Vital Signs 04/04/24 08:56 Height 5 ft 9 in Weight 183 lb 8 oz BMI 27.1 BP 107/71 Blood Pressure Location Rt brachial Position Sitting Respiration 14 Pulse 97 Pulse Source Pulse Oximeter Temp 98.8 F Temp Source Temporal Artery Scan Pulse Oximetry (%) 97 Oxygen Delivery Method Room Air Intake Visit Reasons: f/u HLD Intake Note: f/u labs Allergies hayfever Allergy (Unknown, Uncoded 04/04/24 08:54) Unknown Medication List - Last Reconciled 04/04/24 by Trevon Sequeira MD amitriptyline 10 mg PO BEDTIME 30 days nicotine 21 mg transdermal DAILY PRN 28 days nicotine (polacrilex) 4 mg buccal Q2H 30 days rosuvastatin 20 mg PO DAILY 90 days Tobacco use date assessed: 05/01/23 Dental Screening Dental Screen Date: 05/01/23 HPI f/u HLD HPI Details 53 y/o male presents to f/u D. Labs drawn 04/01/24. Reviewed labs with pt. Triglycerides 317. TC 171. LDL 72. HDL low at 36. He is on rosuvastatin 20mg daily. [facility] Medical History Chronic post-traumatic stress disorder (PTSD) Schizophrenia Chronic back pain Scoliosis Hypertension Laceration Surgical History S/P tendon repair Family History Father Skin cancer Social History Household Members: None Housing: Apartment Do you presently have visiting nurse or other home services: No Alcohol intake: current Alcohol intake frequency: former alcohol drinker Alcohol type: beer Patient Tobacco Use Status: Current everyday Tobacco user Tobacco use type: Cigarette Cigarette Packs Per Day: 10 Cigarettes Per Day: 10 Years Smoked: 35 e-Cigarette/Vaping Use: Never Used Second Hand Smoke Exposure: Yes service: No Current occupational exposures/hazards: No Sexual orientation: Straight/Heterosexual Cognitive needs: No Hearing needs: No Vision needs: No Questionnaire PHQ-9 Over the last 2 weeks, how often have you been bothered by any of the following problems? 1. Little interest or pleasure in doing things: not at all 2. Feeling down, depressed, or hopeless: not at all 3. Trouble falling or staying asleep, or sleeping too much: several days 4. Feeling tired or having little energy: not at all 5. Poor appetite or overeating: not at all 6. Feeling bad about yourself - or that you are a failure or have let yourself or your family down: not at all 7. Trouble concentrating on things, such as reading the newspaper or watching television: several days 8. Moving or speaking so slowly that other people could have noticed. Or the opposite - being so fidgety or restless that you have been moving around a lot more than usual: not at all 9. Thoughts that you would be better off or of hurting yourself in some way: not at all Total score: 2 Source: Developed by Drs. Jonatan Bar, Stephany Grigsby, Kayden Peck and colleagues, with an educational kala from [employer] Thrive Questionnaire Date Thrive assessed: 05/01/23 I am a: Patient What is your living situation today?: I have a steady place to live Within the past 12 months, did the food you bought not last and you didn't have the money to get more?: Never true Within the past 12 months, did you worry whether your food would run out before you got money to buy more?: I choose not to answer this question Do you have trouble paying for medicines?: No Do you have trouble getting transportation to medical appointments?: No Do you have trouble paying your heating and electricity bill?: No Do you have trouble taking care of your child, family member or friend?: No Do you have trouble with day-to-day activities such as bathing, preparing meals, shopping, managing finances, etc.?: No Are you currently unemployed and looking for a job?: I choose not to answer this question Are you interested in more education?: I choose not to answer this question Please select the resources that you would like help with: None Currently or been in a relationship where the following occur: No concerns reported THRIVE Score: 0 AUDIT C Alcohol Use Questionnaire (AUDIT-C) 1. How often do you have a drink containing alcohol?: Never Total Score: 0 VALERIA-7 AMB Questionnaire VALERIA-7 Date VALERIA - 7 assessed: 05/01/23 Feeling nervous, anxious, or on edge: 1 = Several days Not being able to stop or control worryin = Not at all Worrying too much about different things: 0 = Not at all Trouble relaxin = Not at all Being so restless that it is hard to sit still: 0 = Not at all Becoming easily annoyed or irritable: 0 = Not at all Feeling afraid as if something awful might happen: 1 = Several days Total VALERIA-7 score (0-4 normal; 5-9 mild; 10-14 moderate; 15-21 severe): 2 Source: Developed by Drs. Jonatan Bar, Stephany Grigsby, Kayden Peck and colleagues, with an educational kala from [employer]. Review of Systems Const Denies chills, Denies fatigue, Denies fever(s), Denies headache(s) and Denies weakness ENT Denies dizziness and Denies headache(s) Card Denies dyspnea Resp Denies cough, Denies dyspnea, Denies wheezing and Denies other (shortness of breath) Musc Denies numbness and Denies tingling Neuro Denies dizziness, Denies headache(s), Denies numbness, Denies tingling and Denies weakness Psych Denies anxiety and Denies depression Endo Denies fatigue Aller/Immun Denies wheezing Physical exam (Primary Care) Vital Signs: Last Vital Signs Temp 98.8 F 04/04/24 08:56 Pulse 97 04/04/24 08:56 Resp 14 04/04/24 08:56 BP 107/71 04/04/24 08:56 Pulse Ox 97 04/04/24 08:56 Oxygen Delivery Method Room Air 04/04/24 08:56 BMI result Body Mass Index 27.1 Tobacco/Smoking Status: Tobacco use Status Tobacco use date assessed 05/01/23 04/04/24 08:58 Patient Tobacco Use Status Current everyday Tobacco 04/04/24 08:58 Tobacco use type Cigarette 04/04/24 08:58 e-Cigarette/Vaping Use Never Used 04/04/24 08:58 PHQ-9: PHQ-9 Score PHQ-9: Total score 2 04/04/24 08:58 Thrive Assessment: Date of Thrive Assessment Date Thrive assessed 05/01/23 04/04/24 08:58 Currently or been in a relationship where the following occur: No concerns reported Const General: well developed; No acute distress Nutritional Appearance: well nourished Orientation/consciousness: patient oriented x3 [facility] Head: Yes normocephalic and Yes atraumatic Eyes General: appearance normal, both eyes and all related structures Pupils: Equal, round and reactive pupils present EOM: EOMs intact bilaterally Resp Effort & Inspection: normal respiratory effort Neuro General: patient oriented x3 and gait normal Cranial nerves: Yes Equal, round and reactive pupils present Psych Affect: normal affect Coding Level of Care Code Est Pt Level 3 (80859) Diagnoses Mixed hyperlipidemia E78.2 Assessment & Plan Assessment & Plan (1) Mixed hyperlipidemia: Code(s): E78.2 - Mixed hyperlipidemia Category: Medical Plan: TC?and?LDL?cholesterol?are?much?improved?on?rosuvastatin. LDL?now?at?goal?of?less?than?100. Triglycerides?improved?as?well?but?still?significantly?elevated?at?317 Continue?rosuvastatin Encouraged?diet?lower?in?saturated?fats?and?cholesterol?as?well?as?sugars?in?diet Will?recheck?in?4?months Orders: Orders Lipid Panel Today E78.2 - Mixed hyperlipidemia, Z00.00 - Encounter for general adult medical examination without abnormal findings Comprehensive [place]. Panel Fast Today E78.2 - Mixed hyperlipidemia, Z00.00 - Encounter for general adult medical examination without abnormal findings
[2024-04-04 08:56] VITALS: BP 107/71; PULSE 97; RESP 14; TEMP 37.1; O2SAT 97; BMI 27.1
== END 2024-04-04 09:16 | disposition home or self-care (01) ==
PROVIDERS: PCP Family Medicine; Visit Provider Family Medicine
DX: E78.2 Mixed hyperlipidemia (principal)

== ENCOUNTER → 2024-04-04 08:35 | Outpatient (BNVA) | payer OTHER, SELFPAY | PROVIDERS: PCP Family Medicine; Visit Provider Family Medicine | DX: E78.2 Mixed hyperlipidemia (principal) | CPT/HCPCS: 99212 ==

== ENCOUNTER → 2024-06-13 09:46 | Outpatient (BNVA) | payer OTHER, SELFPAY | PROVIDERS: PCP Family Medicine; Visit Provider Nurse Practitioner Family | DX: R25.1 Tremor, unspecified (principal); G47.00 Insomnia, unspecified | CPT/HCPCS: 99212 ==

== ENCOUNTER 2024-07-30 09:47 | Outpatient (REF) | payer OTHER, SELFPAY ==
[2024-07-30 12:23] LABS: Alanine Aminotransferase 24 U/L (0-40); Albumin Level 4.2 g/dL (3.5-5.0); Alkaline Phosphatase 79 U/L (39-117); Anion Gap 11 (12-20); Aspartate Amino Transferase 20 U/L (5-37); Bilirubin Total 0.5 mg/dL (0.0-1.0); Blood Urea Nitrogen 12 mg/dL (9-16); Calcium 9.6 mg/dL (8.4-10.2); Carbon Dioxide 26 mmol/L (22-29); Chloride 109 mmol/L (96-108); Cholesterol 159 mg/dL (<200); Estimated Glomerular Filt Rate > 60; Glucose Fasting 87 mg/dL (60-99); HDL Cholesterol 38 mg/dL (>40); LDL Cholesterol Calculated 70 mg/dL (<100); Magnesium 2.3 mg/dL (1.6-2.6); Potassium 4.2 mmol/L (3.3-5.1); Sodium 142 mmol/L (135-145); Total Protein 7.6 g/dL (6.5-8.0); Triglycerides 258 mg/dL (<150)
== END 2024-07-30 09:48 | disposition home or self-care (01) ==
LOC: HO.WFDLDS 09:47
PROVIDERS: Referring Provider Nurse Practitioner Family; Visit Provider Family Medicine
DX: Z00.00 Encounter for general adult medical examination without abnormal findings (principal); E78.2 Mixed hyperlipidemia; R25.2 Cramp and spasm
CPT/HCPCS: 36415; 80053; 80061; 83735

== ENCOUNTER 2024-08-01 11:36 | Outpatient (REF) | payer OTHER, SELFPAY ==
[2024-08-10 11:44] LABS: Vitamin B1 110 nmol/L (8-30)
== END 2024-08-01 11:37 | disposition home or self-care (01) ==
LOC: HO.WFDLDS 11:36
PROVIDERS: Visit Provider Nurse Practitioner Family
DX: R41.3 Other amnesia (principal)
CPT/HCPCS: 36415; 84425

== ENCOUNTER 2024-08-05 08:33 | Outpatient (AMB) | payer OTHER, SELFPAY ==
--- NOTE | 2024-08-05 08:48 | A.OFFPC_ITS ---
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 Started?him?on?rosuvastatin?and?brought?TC?and?LDL?within?normal?limits?and? triglycerides?had?improved?but?were?still?rather?elevated. Encouraged?lifestyle?changes?and?patient?comes?for?follow-up. TC?and?LDL?have?improved?further?with?an?LDL?of?70?now. Triglycerides?have?improved?further?and?now?below?300 HDL?has?increased?slightly?and?now?at?38. He?says?that?he?has?not?been?exercising?due?to?the?cold?winter. He?is?taking?rosuvastatin?and?tolerating?it?well. [facility] Medical History Chronic post-traumatic stress disorder (PTSD) Schizophrenia Chronic back pain Scoliosis Hypertension Laceration Surgical History S/P tendon repair Family History Father Skin cancer Social History Household Members: None Housing: Apartment Do you presently have visiting nurse or other home services: No Alcohol intake: current Alcohol intake frequency: former alcohol drinker Alcohol type: beer Patient Tobacco Use Status: Current everyday Tobacco user Tobacco use type: Cigarette Cigarette Packs Per Day: 10 Cigarettes Per Day: 10 Years Smoked: 35 e-Cigarette/Vaping Use: Never Used Second Hand Smoke Exposure: Yes service: No Current occupational exposures/hazards: No Sexual orientation: Straight/Heterosexual Cognitive needs: No Hearing needs: No Vision needs: No Questionnaire PHQ-9 Over the last 2 weeks, how often have you been bothered by any of the following problems? 1. Little interest or pleasure in doing things: several days 2. Feeling down, depressed, or hopeless: not at all 3. Trouble falling or staying asleep, or sleeping too much: several days 4. Feeling tired or having little energy: not at all 5. Poor appetite or overeating: not at all 6. Feeling bad about yourself - or that you are a failure or have let yourself or your family down: not at all 7. Trouble concentrating on things, such as reading the newspaper or watching television: several days 8. Moving or speaking so slowly that other people could have noticed. Or the opposite - being so fidgety or restless that you have been moving around a lot more than usual: not at all 9. Thoughts that you would be better off or of hurting yourself in some way: not at all Total score: 3 Depression Screening Interpretation: Negative Depression Screening Done: Yes 70486 - PHQ-9 Billing: Yes Source: Developed by Drs. Jonatan Bar, Stephany Grigsby, Kayden Peck and colleagues, with an educational kala from [employer]. Thrive Questionnaire Date Thrive assessed: 04/04/24 I am a: Patient What is your living situation today?: I have a steady place to live Within the past 12 months, did the food you bought not last and you didn't have the money to get more?: Never true Within the past 12 months, did you worry whether your food would run out before you got money to buy more?: Never true Do you have trouble paying for medicines?: No Do you have trouble getting transportation to medical appointments?: No Do you have trouble paying your heating and electricity bill?: No Do you have trouble taking care of your child, family member or friend?: No Do you have trouble with day-to-day activities such as bathing, preparing meals, shopping, managing finances, etc.?: No Are you currently unemployed and looking for a job?: I choose not to answer this question Are you interested in more education?: I choose not to answer this question Please select the resources that you would like help with: None Currently or been in a relationship where the following occur: No concerns reported THRIVE Score: 0 AUDIT C Alcohol Use Questionnaire (AUDIT-C) 1. How often do you have a drink containing alcohol?: Never Total Score: 0 VALERIA-7 AMB Questionnaire VALERIA-7 Date VALERIA - 7 assessed: 05/01/23 Feeling nervous, anxious, or on edge: 1 = Several days Not being able to stop or control worryin = Not at all Worrying too much about different things: 0 = Not at all Trouble relaxin = Not at all Being so restless that it is hard to sit still: 0 = Not at all Becoming easily annoyed or irritable: 0 = Not at all Feeling afraid as if something awful might happen: 0 = Not at all Total VALERIA-7 score (0-4 normal; 5-9 mild; 10-14 moderate; 15-21 severe): 1 Source: Developed by Drs. Jonatan Bar, Stephany Grigsby, Kayden Peck and colleagues, with an educational kala from [employer]. Review of Systems Const Denies chills, Denies fatigue, Denies fever(s), Denies headache(s) and Denies weakness ENT Denies dizziness and Denies headache(s) Card Denies chest pain, Denies lightheadedness, Denies dyspnea and Denies other (Palpitations) Resp Denies cough, Denies dyspnea, Denies wheezing and Denies other ( shortness of breath) Musc Denies numbness and Denies tingling Neuro Denies dizziness, Denies headache(s), Denies numbness, Denies tingling, Denies paresthesias and Denies weakness Psych Denies anxiety and Denies depression Endo Denies fatigue Aller/Immun Denies wheezing Physical exam (Primary Care) Vital Signs: Last Vital Signs Temp 98.2 F 08/05/24 08:52 Pulse 96 08/05/24 08:52 Resp 14 08/05/24 08:52 BP 110/78 08/05/24 08:52 Pulse Ox 97 08/05/24 08:52 Oxygen Delivery Method Room Air 08/05/24 08:52 BMI result Body Mass Index 27.3 Tobacco/Smoking Status: Tobacco use Status Tobacco use date assessed 05/01/23 08/05/24 08:49 Patient Tobacco Use Status Current everyday Tobacco 08/05/24 08:49 Tobacco use type Cigarette 08/05/24 08:49 e-Cigarette/Vaping Use Never Used 08/05/24 08:49 PHQ-9: PHQ-9 Score PHQ-9: Total score 3 08/05/24 08:49 Depression Screening Interpretation: Negative Thrive Assessment: Date of Thrive Assessment Date Thrive assessed 04/04/24 08/05/24 08:49 Currently or been in a relationship where the following occur: No concerns reported Const General: no acute distress and well developed Nutritional Appearance: well nourished Orientation/consciousness: patient oriented x3 HENMT Head: Yes normocephalic and Yes atraumatic Eyes General: appearance normal, both eyes and all related structures Pupils: Equal, round and reactive pupils present EOM: EOMs intact bilaterally Resp Effort & Inspection: normal respiratory effort Auscultation: clear to auscultation bilaterally Cardio Rate: regular rate Rhythm: regular rhythm Heart sounds: S1 normal heart sound present, S2 normal heart sound present, no gallops, no murmurs and no rubs Neuro General: patient oriented x3 and gait normal Cranial nerves: Yes Equal, round and reactive pupils present Psych Affect: normal affect Coding Level of Care Code Est Pt Level 3 (58523) Diagnoses Mixed hyperlipidemia E78.2 Additional Codes PHQ-9 - 05549 - PHQ-9 Billing: Yes ([id number]) Assessment & Plan Assessment & Plan (1) Mixed hyperlipidemia: Code(s): E78.2 - Mixed hyperlipidemia Category: Medical Plan: Lipids?are?improved?further. He?has?not?started?exercising?yet?and?I?encouraged?this Tolerating?rosuvastatin?and?he?will?continue?it?as?prescribed Encouraged?further?dietary?changes Orders: Orders Comprehensive [place]. Panel Fast Today E78.2 - Mixed hyperlipidemia, Z00.00 - Encounter for general adult medical examination without abnormal findings Lipid Panel Today E78.2 - Mixed hyperlipidemia, Z00.00 - Encounter for general adult medical examination without abnormal findings
[2024-08-05 08:52] VITALS: BP 110/78; PULSE 96; RESP 14; TEMP 36.8; O2SAT 97; BMI 27.3
== END 2024-08-05 09:35 | disposition home or self-care (01) ==
LOC: HO.HMCFM 08:35
PROVIDERS: PCP Family Medicine; Visit Provider Family Medicine
DX: E78.2 Mixed hyperlipidemia (principal)

== ENCOUNTER → 2024-08-05 08:33 | Outpatient (BNVA) | payer OTHER, SELFPAY | PROVIDERS: PCP Family Medicine; Visit Provider Family Medicine | DX: E78.2 Mixed hyperlipidemia (principal) | CPT/HCPCS: 96127; 99212 ==

== ENCOUNTER 2025-01-05 08:41 | Outpatient (AMB) | payer MEDICARE, MEDICAID, SELFPAY ==
[2025-01-05 08:44] VITALS: BP 114/70; PULSE 102; O2SAT 96; BMI 27.5
--- NOTE | 2025-01-05 08:44 | A.OFFVIS_ITS ---
Vital Signs 01/05/25 08:44 Height 5 ft 9 in Weight 186 lb 4 oz BMI 27.5 BP 114/70 Blood Pressure Location Lt brachial Position Sitting Pulse 102 H Pulse Source Pulse Oximeter Pulse Oximetry (%) 96 Oxygen Delivery Method Room Air Intake Visit Reasons: Follow Up 6mo Intake Note: Patient presents to the office today for a 6 month follow up for tremors. 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 Pt denies any significant interval medical changes. Interval labs were notable for elevated thiamine level, thus thiamine was reduce to 50 mg daily dose. For awhile he was having a brief sharp pain behind his left ear, but it has subsided. He is most concerned today about ongoing left ear tinnitus, which he notices more so if he puts headphones on. He has a history of some hearing deficit, and had a [facility] audiology eval many years ago. She wonders if it is actually possible to remove his ability to hear from the left ear, as the tinnitus is so bothersome. He denies known bruxism. Results of neuropsychological evaluation at [facility], results showed results reveal prominent difficulties in aspects of executive function with difficulties in learning/encoding, problem-solving, verbal switching, planning/organization and letter fluency. Otherwise, his performances were within expectation or higher. He continues to have memory issues and difficulty with functioning type activities. 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 Pt states his tremor is stable. His mood is stable. He states he is sleeping well on amitriptyline. He states his LLE foot have improved significantly since starting magnesium supplement He denies any gait issues or falls. [facility] Medical History Chronic post-traumatic stress disorder (PTSD) Schizophrenia Chronic back pain Scoliosis Hypertension Laceration Surgical History S/P tendon repair Family History Father Skin cancer Social History Household Members: None Housing: Apartment Do you presently have visiting nurse or other home services: No Alcohol intake: current Alcohol intake frequency: former alcohol drinker Alcohol type: beer Patient Tobacco Use Status: Current everyday Tobacco user Tobacco use type: Cigarette Cigarette Packs Per Day: 10 Cigarettes Per Day: 10 Years Smoked: 35 e-Cigarette/Vaping Use: Never Used Second Hand Smoke Exposure: Yes service: No Current occupational exposures/hazards: No Sexual orientation: Straight/Heterosexual Cognitive needs: No Hearing needs: No Vision needs: No Physical Exam Vital Signs: Last Vital Signs Pulse 102 H 01/05/25 08:44 BP 114/70 01/05/25 08:44 Pulse Ox 96 01/05/25 08:44 Oxygen Delivery Method Room Air 01/05/25 08:44 BMI result Body Mass Index 27.5 Const General: cooperative and no acute distress Orientation/consciousness: patient oriented x3 HEENT Head: Yes normocephalic Resp Effort & Inspection: normal respiratory effort and able to speak in complete sentences Neuro Other: A&O x's 3 w/ mild STM lapses and at times requires a slower pace and reiteration of information to follow and understand conversation. Mild decreased expression and blink- improved Bilateral TMJ displacement upon opening and closing, bilateral masseter tightness, signs of lower teeth wearing LUE postural tremor- mild Left hand rests in slight flexion. BUE mild tone FFM- ok Foot taps- ok, left more fluid than right Pt able to stand w/o using arms, slight right decreased arm swing, good stride, steady gait. General: patient oriented x3 and CN's II-XI intact bilaterally Cognition (Neuro): normal cognition Motor exam (neuro): 5/5 motor strength present throughout Psych Appearance: grossly normal Mental Status: mental status grossly normal Speech and movement: Clear speech present Affect: normal affect Attitude: cooperative Thought process: Normal thought process present Thought content: Normal thought content present Insight: Good insight present (Psych) Judgement: Good judgement present (Psych) Assessment & Plan Assessment & Plan (1) Tremor: Comment: DaTscan- normal Code(s): R25.1 - Tremor, unspecified Category: Medical (2) Insomnia: Code(s): G47.00 - Insomnia, unspecified Category: Medical Qualifiers: Insomnia type: other insomnia Qualified Code(s): G47.09 - Other insomnia (3) Tinnitus: Code(s): H93.19 - Tinnitus, unspecified ear Category: Medical Qualifiers: Laterality: left Qualified Code(s): H93.12 - Tinnitus, left ear (4) History of traumatic head injury: Code(s): Z87.828 - Personal history of other (healed) physical injury and trauma Category: Medical (5) Cognitive dysfunction: Comment: Executive functioning dysfunction-likely multifactorial Code(s): F09 - Unspecified mental disorder due to known physiological condition Category: Medical Plan DaTscan - normal. Pt's movement s/s have improved and stabilized since stopping olanzapine. Movement s/s may be secondary to h/o TBI, h/o alcohol abuse. Reviewed early 2024 neuropsychological evaluation results, from [facility], results consistent with executive functioning dysfunction likely multifactorial in etiology. For tremor, muscle cramps, cognitive difficulties, and sleep difficulties: * OT eval and treat for cognitive therapy * Continue thiamine 50 mg p.o. daily supplement. * Continue amitriptyline 25 mg q.h.s.- for sleep. * Continue magnesium 400 mg q.h.s.- for nocturnal left foot cramp * Engage in regular physical, cognitive, and social activities as able * Check magnesium and thiamine level with next routine labs. * Continue to hold olanzapine 7.5 mg- as this may exacerbate tremor and movements symptoms. * Continue to monitor tremor and rigidity. * Future considerations: Sleep study-patient declines at this time For left ear tinnitus: ENT consult to further assess left ear tinnitus * In the meantime, trial an OTC mouth guard to reduce symptoms of bruxism * Ask patient to check if tinnitus changes in response to jaw/head/neck movement, and if so to let us know. Patient ask that all consult and therapy appointments be mailed to him- this was indicated in both orders today. Will follow-up upon review of above and patient to follow-up in clinic in 6 mon ths or sooner prn. Orders: Orders Vitamin B1 Today E51.9 - Thiamine deficiency, unspecified, R25.2 - Cramp and spasm Magnesium Today R25.2 - Cramp and spasm OT Evaluation and Treatment Today F09 - Unspecified mental disorder due to known physiological condition, Z87.828 - Personal history of other (healed) physical injury and trauma Referrals Ear/Nose/Throat Referral H91.90 - Unspecified hearing loss, unspecified ear, H93.19 - Tinnitus, unspecified ear Coding Level of Care Code Est Pt Level 4 (15097) Diagnoses Tremor R25.1 Other insomnia G47.09 Insomnia type: other insomnia Tinnitus of left ear H93.12 Laterality: left History of traumatic head injury Z87.828 Cognitive dysfunction F09
== END 2025-01-05 09:46 | disposition home or self-care (01) ==
LOC: HO.HSMS 08:42
PROVIDERS: PCP Family Medicine; Visit Provider Nurse Practitioner Family
DX: R25.1 Tremor, unspecified (principal); G47.09 Other insomnia; H93.12 Tinnitus, left ear; Z87.828 Personal history of other (healed) physical injury and trauma; R41.89 Other symptoms and signs involving cognitive functions and awareness
CPT/HCPCS: 99214

== ENCOUNTER → 2025-01-05 08:41 | Outpatient (BNVA) | payer MEDICARE, SELFPAY | PROVIDERS: PCP Family Medicine; Visit Provider Nurse Practitioner Family | DX: G47.09 Other insomnia (principal); R25.1 Tremor, unspecified; H93.12 Tinnitus, left ear; F09 Unspecified mental disorder due to known physiological condition; Z87.828 Personal history of other (healed) physical injury and trauma | CPT/HCPCS: 99212 ==

== ENCOUNTER 2025-02-02 10:28 | Outpatient (REF) | payer MEDICARE, SELFPAY ==
[2025-02-02 14:25] LABS: Alanine Aminotransferase 23 U/L (0-40); Albumin Level 4.4 g/dL (3.5-5.0); Alkaline Phosphatase 68 U/L (39-117); Anion Gap 12 (12-20); Aspartate Amino Transferase 24 U/L (5-37); Blood Urea Nitrogen 10 mg/dL (9-16); Calcium 9.3 mg/dL (8.4-10.2); Carbon Dioxide 24 mmol/L (22-29); Chloride 111 mmol/L (96-108); Cholesterol 157 mg/dL (<200); Estimated Glomerular Filt Rate > 60; HDL Cholesterol 42 mg/dL (>40); Magnesium 2.2 mg/dL (1.6-2.6); Potassium 4.0 mmol/L (3.3-5.1); Sodium 143 mmol/L (135-145); Total Protein 7.1 g/dL (6.5-8.0); Triglycerides 232 mg/dL (<150)
== END 2025-02-02 10:29 | disposition home or self-care (01) ==
LOC: HO.WFDLDS 10:28
PROVIDERS: Referring Provider Nurse Practitioner Family; Visit Provider Family Medicine
DX: Z00.00 Encounter for general adult medical examination without abnormal findings (principal); E78.2 Mixed hyperlipidemia; E51.9 Thiamine deficiency, unspecified; R25.2 Cramp and spasm
CPT/HCPCS: 36415; 80053; 80061; 83735; 84425

== ENCOUNTER 2025-02-05 08:00 | Outpatient (RCR) | payer MEDICARE, SELFPAY ==
--- NOTE | 2025-02-05 10:09 | MHC.OT.DC ---
[facility] Office [address] [phone] F: [phone] F: [phone] Occupational Therapy Discharge Note Patient Name: Juanito Lou Provider: Kelsey Zavala Diagnosis: Post-concussion syndrome Date of Evaluation: 01/13/25 Date of Discharge: 02/05/25 Treatments to Date: 7 Discharge Status: Achieved Goals Improved Function Independent with HEP Discharge Summary: Juanito has progressed well in OT and met all LTG's set on admission. We did trial several exercises focused on tinnitus management, although pt declines any functional improvement in this. He was provided for resources for sound therapy and holistic tx options as well. On re-assess of the MOCA; pt scored 26/30 indicating 'normal' cognition with noted improvement in STM recall (2/5, previously 0/5), and language fluency (2/2, previously 0/2). At this time, Juanito is IND with external/internal memory and attention strategies and is in agreement with discharge to [facility]. Thank you for this referral! Electronically Signed By: Marylin Gutierrez MS OTR/L Reviewed/agree with student documentation: Therapist: Please Sign and return to therapist, thank you for your referral.
== END 2025-02-05 10:10 | disposition home or self-care (01) ==
LOC: HO.OTS 08:00
PROVIDERS: PCP Family Medicine; Visit Provider Nurse Practitioner Family
DX: R41.89 Other symptoms and signs involving cognitive functions and awareness (principal); F07.81 Postconcussional syndrome; F09 Unspecified mental disorder due to known physiological condition; Z87.820 Personal history of traumatic brain injury
CPT/HCPCS: 97166; 97530

== ENCOUNTER 2025-02-06 08:15 | Outpatient (AMB) | payer MEDICARE, MEDICAID, SELFPAY ==
--- NOTE | 2025-02-06 08:32 | MHC.PC.OV ---
Vital Signs 02/06/25 08:33 Height 5 ft 9 in Weight 187 lb 6 oz BMI 27.7 BP 118/76 Blood Pressure Location Rt brachial Position Sitting Pulse 105 H Pulse Source Pulse Oximeter Pulse Oximetry (%) 97 Oxygen Delivery Method Room Air Intake Visit Reasons: f/u hyperlipidemia Accompanied by: Mother Allergies hayfever Allergy (Unknown, Uncoded 02/06/25 08:36) Unknown Tobacco use date assessed: 02/06/25 Dental Screening Dental Screen Date: 02/06/25 Did you have a dental visit in the last 12 months?: No Did you have a dental problem in the last 6 months where you did not have access to dental care?: No Was dental information given to patient?: No HPI f/u hyperlipidemia HPI Details Patient presents to follow-up hyperlipidemia. He is taking rosuvastatin LDL cholesterol 69 HDL was low at last visit and now is at 42 Triglycerides are still high but have come down somewhat. 258 to 232 Patient also has ongoing symptoms of tinnitus and pain in his ear He says ?I have [place] syndrome and no one believes me? [facility] Medical History Chronic post-traumatic stress disorder (PTSD) Schizophrenia Chronic back pain Scoliosis Hypertension Laceration Surgical History S/P tendon repair Family History Father Skin cancer Social History Household Members: None Housing: Apartment Do you presently have visiting nurse or other home services: No Alcohol intake: current Alcohol intake frequency: former alcohol drinker Alcohol type: beer Patient Tobacco Use Status: Current everyday Tobacco user Tobacco use type: Cigarette Cigarette Packs Per Day: 10 Cigarettes Per Day: 10 Years Smoked: 35 e-Cigarette/Vaping Use: Never Used Second Hand Smoke Exposure: Yes service: No Current occupational exposures/hazards: No Sexual orientation: Straight/Heterosexual Cognitive needs: No Hearing needs: No Vision needs: No Questionnaire PHQ-9 Over the last 2 weeks, how often have you been bothered by any of the following problems? 1. Little interest or pleasure in doing things: several days 2. Feeling down, depressed, or hopeless: not at all 3. Trouble falling or staying asleep, or sleeping too much: several days 4. Feeling tired or having little energy: not at all 5. Poor appetite or overeating: not at all 6. Feeling bad about yourself - or that you are a failure or have let yourself or your family down: not at all 7. Trouble concentrating on things, such as reading the newspaper or watching television: several days 8. Moving or speaking so slowly that other people could have noticed. Or the opposite - being so fidgety or restless that you have been moving around a lot more than usual: not at all 9. Thoughts that you would be better off or of hurting yourself in some way: not at all Total score: 3 Depression Screening Interpretation: Negative Depression Screening Done: Yes Source: Developed by Drs. Jonatan Bar, Stephany Grigsby, Kayden Peck and colleagues, with an educational kala from [employer]. Thrive Questionnaire Date Thrive assessed: 08/05/24 I am a: Patient What is your living situation today?: I have a steady place to live Within the past 12 months, did the food you bought not last and you didn't have the money to get more?: Never true Within the past 12 months, did you worry whether your food would run out before you got money to buy more?: Never true Do you have trouble paying for medicines?: No Do you have trouble getting transportation to medical appointments?: No Do you have trouble paying your heating and electricity bill?: No Do you have trouble taking care of your child, family member or friend?: No Do you have trouble with day-to-day activities such as bathing, preparing meals, shopping, managing finances, etc.?: No Are you currently unemployed and looking for a job?: I choose not to answer this question Are you interested in more education?: I choose not to answer this question Please select the resources that you would like help with: None Currently or been in a relationship where the following occur: No concerns reported THRIVE Score: 0 AUDIT C Alcohol Use Questionnaire (AUDIT-C) 1. How often do you have a drink containing alcohol?: Never 3. How often do you have six or more drinks on one occasion?: Never Total Score: 0 VALERIA-7 AMB Questionnaire VALERIA-7 Date VALERIA - 7 assessed: 08/05/24 Feeling nervous, anxious, or on edge: 1 = Several days Not being able to stop or control worryin = Not at all Worrying too much about different things: 0 = Not at all Trouble relaxin = Not at all Being so restless that it is hard to sit still: 0 = Not at all Becoming easily annoyed or irritable: 0 = Not at all Feeling afraid as if something awful might happen: 0 = Not at all Total VALERIA-7 score (0-4 normal; 5-9 mild; 10-14 moderate; 15-21 severe): 1 Source: Developed by Drs. Jonatan Bar, Stephany Grigsby, Kayden Peck and colleagues, with an educational kala from [employer]. Review of Systems Const Denies chills, Denies fatigue, Denies fever(s), Denies headache(s) and Denies weakness ENT Details: Tinnitus and hearing changes Denies dizziness and Denies headache(s) Card Denies chest pain, Denies lightheadedness, Denies dyspnea and Denies other (Palpitations) Resp Denies cough, Denies dyspnea, Denies wheezing and Denies other ( shortness of breath) Musc Denies numbness and Denies tingling Neuro Denies dizziness, Denies headache(s), Denies numbness, Denies tingling, Denies paresthesias and Denies weakness Psych Details: Mild irritation Denies anxiety and Denies depression Endo Denies fatigue Aller/Immun Denies wheezing Physical exam (Primary Care) Vital Signs: Last Vital Signs Pulse 105 H 02/06/25 08:33 BP 118/76 02/06/25 08:33 Pulse Ox 97 02/06/25 08:33 Oxygen Delivery Method Room Air 02/06/25 08:33 BMI result Body Mass Index 27.7 Tobacco/Smoking Status: Tobacco use Status Tobacco use date assessed 02/06/25 02/06/25 08:36 Patient Tobacco Use Status Current everyday Tobacco 02/06/25 08:33 Tobacco use type Cigarette 02/06/25 08:33 e-Cigarette/Vaping Use Never Used 02/06/25 08:33 PHQ-9: PHQ-9 Score PHQ-9: Total score 3 02/06/25 08:36 Depression Screening Interpretation: Negative Thrive Assessment: Date of Thrive Assessment Date Thrive assessed 08/05/24 02/06/25 08:33 Currently or been in a relationship where the following occur: No concerns reported Const General: no acute distress and well developed Nutritional Appearance: well nourished Orientation/consciousness: patient oriented x3 HENMT Other: Ear canals and TMs normal bilaterally Head: Yes normocephalic and Yes atraumatic Eyes General: appearance normal, both eyes and all related structures Pupils: Equal, round and reactive pupils present EOM: EOMs intact bilaterally Resp Effort & Inspection: normal respiratory effort Auscultation: clear to auscultation bilaterally Cardio Rate: regular rate Rhythm: regular rhythm Heart sounds: S1 normal heart sound present, S2 normal heart sound present, no gallops, no murmurs and no rubs Neuro General: patient oriented x3 and gait normal Cranial nerves: Yes Equal, round and reactive pupils present Psych Other: Mild paranoia, mildly anxious Affect: normal affect Coding Level of Care Code Est Pt Level 4 (35715) Diagnoses Mixed hyperlipidemia E78.2 Tinnitus of left ear H93.12 Laterality: left Cognitive dysfunction F09 Assessment & Plan Assessment & Plan (1) Mixed hyperlipidemia: Code(s): E78.2 - Mixed hyperlipidemia Category: Medical (2) Tinnitus: Code(s): H93.19 - Tinnitus, unspecified ear Category: Medical Qualifiers: Laterality: left Qualified Code(s): H93.12 - Tinnitus, left ear (3) Cognitive dysfunction: Comment: Executive functioning dysfunction-likely multifactorial Code(s): F09 - Unspecified mental disorder due to known physiological condition Category: Medical Plan Patient has complaints of tinnitus in bilateral ears. 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 As above, can not rule out possible worsening of hearing and tinnitus. Referred as above Orders: Referrals Ear/Nose/Throat Referral H91.90 - Unspecified hearing loss, unspecified ear Audiology Referral H91.90 - Unspecified hearing loss, unspecified ear
[2025-02-06 08:33] VITALS: BP 118/76; PULSE 105; O2SAT 97; BMI 27.7
== END 2025-02-06 08:50 | disposition home or self-care (01) ==
LOC: HO.HMCFM 08:16
PROVIDERS: PCP Family Medicine; Visit Provider Family Medicine
DX: E78.2 Mixed hyperlipidemia (principal); H93.12 Tinnitus, left ear; F09 Unspecified mental disorder due to known physiological condition

== ENCOUNTER → 2025-02-06 08:15 | Outpatient (BNVA) | payer MEDICARE, SELFPAY | PROVIDERS: PCP Family Medicine; Visit Provider Family Medicine | DX: E78.2 Mixed hyperlipidemia (principal); F09 Unspecified mental disorder due to known physiological condition; H93.12 Tinnitus, left ear | CPT/HCPCS: 99212 ==